=== PATIENT | female | born 1960 | race Caucasian/White ===

== ENCOUNTER 2018-07-10 16:41 | Inpatient (IN) | payer OTHER ==
[2018-07-10] MEDS ORDERED: METOCLOPRAMIDE HCL INJECTION 10 MG/2 ML VIAL IVPB ONE (19:43)
[2018-07-10] MEDS ORDERED: SODIUM CHLORIDE 1,000 ML IV STA ×2 (19:43→23:00)
[2018-07-10] MEDS ORDERED: morphine SULFATE 4 MG/ML VIAL IVPUSH ONE (19:43)
--- NOTE | 2018-07-10 20:01 | PDOC ---
History of Present Illness - General Chief Complaint: Nausea/Vomiting Stated Complaint: VOMITING Time Seen by Provider: 07/10/18 17:18 History Source: Patient - History of Present Illness Timing/Duration: reports: other Quality: reports: severe Past History - Past Medical History Allergies/Adverse Reactions: Allergies Allergy/AdvReac Type Severity Reaction Status Date / Time No Known Allergies Allergy Verified 07/10/18 19:56 Home Medications: Ambulatory Orders Bupropion HCl [Wellbutrin Xl] 300 mg PO DAILY 07/10/18 Clonazepam [Klonopin] 1 mg PO HS 07/10/18 Dexamethasone [Decadron -] 4 mg PO Q12H 07/10/18 Docusate Sodium [Colace] 200 mg PO HS 07/10/18 Methylphenidate HCl [Methylphenidate HCl ER] 20 mg PO BID 07/10/18 Olanzapine [Zyprexa -] 5 mg PO HS 07/10/18 Ondansetron [Zofran -] 4 mg PO Q4H PRN 07/10/18 Oxycodone HCl/Acetaminophen [Percocet 5-325 mg Tablet] 1 tab PO Q6H PRN Pyridoxine HCl [Vitamin B-6] 100 mg PO BID 07/10/18 Sennosides [Senna] 2 tab PO HS 07/10/18 Sertraline HCl [Zoloft -] 50 mg PO DAILY 07/10/18 Cancer: Yes (breast mets to brain) COPD: No Psychiatric Problems: Yes - Suicide/Smoking/Psychosocial Hx Smoking History: Former smoker Have you smoked in the past 12 months: No If you are a former smoker, when did you quit?: 25 y Information on smoking cessation initiated: No Review of Systems - Review of Systems Constitutional: Yes: Weakness. No: Chills, Fever Respiratory: No: Cough, Shortness of Breath Cardiac (ROS): No: Chest Pain, Palpitations, Syncope ABD/GI: Yes: Nausea, Vomiting. No: Diarrhea : No: Dysuria Musculoskeletal: No: Back Pain, Neck Pain Neurological: No: Headache, Dizziness *Physical Exam - Vital Signs Last Vital Signs Temp Pulse Resp BP Pulse Ox 98.4 F 84 18 115/90 95 07/10/18 16:54 07/10/18 16:54 07/10/18 16:54 07/10/18 16:54 07/10/18 16:54 - Physical Exam Comments: 07/10/18 20:27 chronically ill appearing General Appearance: Yes: Appropriately Dressed HEENT: positive: Normal Voice Neck: positive: Supple Respiratory/Chest: positive: Lungs Clear, Normal Breath Sounds. negative: Respiratory Distress Cardiovascular: positive: Regular Rate, S1, S2 Gastrointestinal/Abdominal: positive: Normal Bowel Sounds, Soft. negative: Tender, Distended, Guarding, Rebound Musculoskeletal: negative: CVA Tenderness Integumentary: positive: Dry, Warm Neurologic: positive: Fully Oriented, Alert, Normal Mood/Affect ED Treatment Course - LABORATORY CBC & Chemistry Diagram: 07/10/18 20:20 07/10/18 20:20 Medical Decision Making - Medical Decision Making 07/10/18 19:53 57-year-old female, history of breast ca w/ bone/brain mets per pt, on targeted therapy Q2 weeks, follows up at [facility], here with intractable nausea and vomiting for over a week with vague abdominal pain that started at some point after vomiting began. Denies any hematemesis, diarrhea, fever, chills, acute HYATT , visual changes, CP, SOB or palpitations. Now c/o gen weakness. States she got transferred to [facility] a week ago from [place] where she was undergoing a "clinical trial". Patient states symptoms began before being transferred to shelter and have been receiving zofran in shelter with no relief per patient See exam Intractable n/v H/o breast ca w/ bone/brain mets, on targeted therapy at [facility] R/o metabolic vs neuro vs infectious source, unlikely SBO or cardiac Ill [place] but stable w/ benign abd -antiemetic -IVF -pain control (reports gen body aches-chronic) -ekg -labs -CT head -anticipate admission 07/10/18 20:38 07/10/18 00:[address] head and CXR unremarkable UA pending. On initial reassessment, patient states she felt better, but at some point, began vomiting again. Will continue to manage symptoms and admit at this time 07/11/18 00:35 Case signed out to the admitting team, and patient admitted *DC/Admit/Observation/Transfer Diagnosis at time of Disposition: Intractable nausea and vomiting Qualifiers: Vomiting type: unspecified Qualified Code(s): R11.2 - Nausea with vomiting, unspecified - Discharge Dispostion Condition at time of disposition: Fair Decision to Admit order: Yes - Referrals Referrals: Sophy Rock MD [Primary Care Provider] - - Patient Instructions - Post Discharge Activity
[2018-07-10] MEDS ORDERED: METOCLOPRAMIDE HCL INJECTION 10 MG/2 ML VIAL ONE (20:04)
[2018-07-10] MEDS ORDERED: morphine SULFATE 4 MG/ML VIAL ONE (20:05)
[2018-07-10 20:42] LABS: BASO % 0.3 % (0-2.0); EOS % 0.6 % (0-4.5); HEMATOCRIT 37.8 % (32.4-45.2); HEMOGLOBIN 12.8 GM/dL (10.7-15.3); LYMPH % 12.3 % (8-40); MCH 30.3 pg (25.7-33.7); MCHC 33.9 g/dl (32.0-36.0); MEAN CELL VOLUME 89.3 fl (80-96); MEAN PLT VOLUME 7.6 fl (7.5-11.1); MONO % 4.1 % (3.8-10.2); NEUT % 82.7 % (42.8-82.8); PLATELET COUNT 184 K/MM3 (134-434); RBC 4.23 M/mm3 (3.60-5.2); WHITE BLOOD COUNT 8.5 K/mm3 (4.0-10.0)
--- NOTE | 2018-07-10 21:01 | PDOC ---
*Physical Exam - Vital Signs Last Vital Signs Temp Pulse Resp BP Pulse Ox 98.4 F 84 18 115/90 95 07/10/18 16:54 07/10/18 16:54 07/10/18 16:54 07/10/18 16:54 07/10/18 16:54 ED Treatment Course - LABORATORY CBC & Chemistry Diagram: 07/11/18 06:30 07/11/18 06:30 - ADDITIONAL ORDERS Additional order review: 07/10/18 20:20 RBC 4.23 MCV 89.3 MCHC 33.9 RDW 19.0 H MPV 7.6 Neutrophils % 82.7 Lymphocytes % 12.3 Monocytes % 4.1 Eosinophils % 0.6 Basophils % 0.3 - Medications Given in the ED: ED Medications Discontinued Medications Generic Name Dose Route Start Last Admin Trade Name Freq PRN Reason Stop Dose Admin Sodium Chloride 1,000 mls @ 1,000 mls/hr 07/10/18 19:43 07/10/18 20:31 Normal Saline - IV 07/10/18 20:42 1,000 mls/hr ASDIR STA Administration Metoclopramide HCl 10 mg 07/10/18 19:43 07/10/18 20:31 Reglan Injection - IVPB 07/10/18 19:44 10 mg ONCE ONE Administration Morphine Sulfate 4 mg 07/10/18 19:43 07/10/18 20:30 Morphine Sulfate IVPUSH 07/10/18 19:44 4 mg ONCE ONE Administration Medical Decision Making - Medical Decision Making 07/10/18 21:01 agree with care from ROCK August *DC/Admit/Observation/Transfer Diagnosis at time of Disposition: Intractable nausea and vomiting - Discharge Dispostion Condition at time of disposition: Fair - Referrals - Patient Instructions - Post Discharge Activity
[2018-07-10 21:12] LABS: ALBUMIN 3.2 g/dl (3.4-5.0); ALK PHOS 115 U/L (45-117); ANION GAP 10 (8-16); BILIRUBIN,TOTAL 0.6 mg/dL (0.2-1.0); BLOOD UREA NITROGEN 12 mg/dL (7-18); CALCIUM 8.9 mg/dL (8.5-10.1); CHLORIDE 107 mmol/L (98-107); CO2 25 mmol/L (21-32); CREATININE 0.5 mg/dL (0.55-1.02); GLUCOSE,RANDOM 84 mg/dL (74-106); LIPASE 68 U/L (73-393); POTASSIUM 3.6 mmol/L (3.5-5.1); SGOT/AST 38 U/L (15-37); SGPT/ALT 57 U/L (12-78); SODIUM 142 mmol/L (136-145); TOT PROT 6.9 g/dl (6.4-8.2)
[2018-07-10] MEDS ORDERED: ONDANSETRON 4 MG/2 ML VIAL IVPUSH ONE (23:00)
[2018-07-10] MEDS ORDERED: ONDANSETRON 4 MG/2 ML VIAL ONE (23:08)
--- NOTE | 2018-07-11 00:33 | PN ---
Teaching Attending Note Name of Resident: Aruna Knapp ATTENDING PHYSICIAN STATEMENT I saw and evaluated the patient. I reviewed the resident's note and discussed the case with the resident. I agree with the resident's findings and plan as documented. SUBJECTIVE: Patient is 57 year old woman with history of breast ca w/ bone/brain mets, bilateral mastectomy on targeted therapy Q2 weeks, follows up at [facility] , here with intractable nausea and vomiting for over a week with vague abdominal pain that started at some point after vomiting began. Denies any hematemesis, diarrhea, fever, chills, acute HYATT , visual changes, CP, SOB or palpitations. Now c/o gen weakness. States she got transferred to [facility] a week ago from [place] where she was undergoing a "clinical trial". Patient states symptoms began before being transferred to detention and have been receiving zofran in detention with no relief per patient OBJECTIVE: Alert and in mild discomfort Vital Signs Period Temp Pulse Resp BP Sys/Lacey Pulse Ox Last 24 Hr 98.4 F-98.4 F 84-87 18-18 115-128/88-90 95-96 HEENT: No Jaundice, eye redness or discharge, PERRLA, EOMI. Normocephalic, atraumatic. External ears are normal and hearing is grossly intact. No nasal discharge. Neck: Supple, nontender. No palpable adenopathy or thyromegaly. No JVD Chest: Good effort. Bilateral mastectomy; Clear to auscultation and percussion. Heart: Regular. No S3, rub or murmur Abdomen: Not distended, soft, nontender and no HSM. No rebound or guarding. Normoactive bowel sounds. Ext: Peripheral pulses intact. No leg edema. Skin: Warm and dry. No petechiae, rash or ecchymosis. Neuro: Alert. Oriented x3. CN 2-12 grossly intact. Sensation grossly intact in all four extremities and DTR are symmetric. Home Medications Medication Instructions Recorded Bupropion HCl [Wellbutrin Xl] 300 mg PO DAILY 07/10/18 Clonazepam [Klonopin] 1 mg PO HS 07/10/18 Dexamethasone [Decadron -] 4 mg PO Q12H 07/10/18 Docusate Sodium [Colace] 200 mg PO HS 07/10/18 Methylphenidate HCl 20 mg PO BID 07/10/18 [Methylphenidate HCl ER] Olanzapine [Zyprexa -] 5 mg PO HS 07/10/18 Ondansetron [Zofran -] 4 mg PO Q4H PRN 07/10/18 Oxycodone HCl/Acetaminophen 1 tab PO Q6H PRN 07/10/18 [Percocet 5-325 mg Tablet] Pyridoxine HCl [Vitamin B-6] 100 mg PO BID 07/10/18 Sennosides [Senna] 2 tab PO HS 07/10/18 Sertraline HCl [Zoloft -] 50 mg PO DAILY 07/10/18 Abnormal Lab Results 07/10/18 07/10/18 20:20 20:20 RDW 19.0 H Creatinine 0.5 L AST 38 H Albumin 3.2 L Lipase 68 L ASSESSMENT AND PLAN: 1. Intractable Vomiting - Likely a side effect of the chemotherapy as well as cancer-related vomiting. Head CT does not show any mass lesions. No QT prolongation on EKG. Will give IV NS, zofran, reglan and protonix. NPO for now. Get CT abd/pelvis and consult GI and oncology. Provide generous emotional support. 2. DVT prophylaxis - Lovenox 40 mg SQ q 24 hours. 3. Advance directives - Full code
[2018-07-11 00:51] LABS: URINE APPEARANCE TURBID; URINE BILIRUBIN NEGATIVE (<2.0 mg/dL); URINE COLOR AMBER; URINE GLUCOSE (UA) NEGATIVE (NEGATIVE); URINE KETONE NEGATIVE (NEGATIVE)
[2018-07-11] MEDS ORDERED: ONDANSETRON 4 MG TABLET PO PRN (00:51)
[2018-07-11 00:52] LABS: URINE LEUK ESTERASE NEGATIVE (NEGATIVE); URINE NITRITE NEGATIVE (NEGATIVE); URINE PROTEIN NEGATIVE (NEGATIVE); URINE UROBILINOGEN 4.0 E.U/dl mg/dL (0.2-1.0)
[2018-07-11] MEDS ORDERED: SODIUM CHLORIDE 1,000 ML IV SCH (01:45)
--- NOTE | 2018-07-11 02:04 | HP ---
CHIEF COMPLAINT:nausea and vomiting PCP: HISTORY OF PRESENT ILLNESS: Patient is a 57 year old female with past medical history of breast cancer with metastasis to bone and cerebellum, presented with nausea and vomiting for 1 week. Patient has had 5-6 episodes per day of nonbloody, nonbilious vomiting since 1 week ago. She [facility]an [facility] which provided minimal relief. She was brought to the ED due to persistence of vomiting with accompanying vague abdominal pain and weakness. This was the first time patient experienced intractable vomiting. Patient is seen at [facility] for infusion targeted therapy every 3 weeks for the past 3 years, and Herceptin clinical trial at [facility] for 1 year. Patient denies hematemesis, diarrhea, fever, chills, headache, visual changes, chest pain, SOB, palpitations. ER course was notable for: (1)AST 38, ALT 57, Urinalysis showed urobilinogen 4.0 (2)Head CT - no discrete mass lesion Recent Travel:denies any recent travel PAST MEDICAL HISTORY: Breast cancer stage IV PAST SURGICAL HISTORY: Double mastectomy Social History: Smoking:previous smoker, 2 ppd x 8 years, quit 25 years ago Alcohol:non EtOH drinker Drugs: denies illicit drug use Family History: Allergies No Known Allergies Allergy (Verified 07/10/18 19:56) HOME MEDICATIONS: Home Medications Medication Instructions Recorded Bupropion HCl [Wellbutrin Xl] 300 mg PO DAILY 07/10/18 Clonazepam [Klonopin] 1 mg PO HS 07/10/18 Dexamethasone [Decadron -] 4 mg PO Q12H 07/10/18 Docusate Sodium [Colace] 200 mg PO HS 07/10/18 Methylphenidate HCl 20 mg PO BID 07/10/18 [Methylphenidate HCl ER] Olanzapine [Zyprexa -] 5 mg PO HS 07/10/18 Ondansetron [Zofran -] 4 mg PO Q4H PRN 07/10/18 Oxycodone HCl/Acetaminophen 1 tab PO Q6H PRN 07/10/18 [Percocet 5-325 mg Tablet] Pyridoxine HCl [Vitamin B-6] 100 mg PO BID 07/10/18 Sennosides [Senna] 2 tab PO HS 07/10/18 Sertraline HCl [Zoloft -] 50 mg PO DAILY 07/10/18 REVIEW OF SYSTEMS CONSTITUTIONAL: Absent: fever, chills, diaphoresis, generalized weakness, malaise, loss of appetite, weight change HEENT: Absent: rhinorrhea, nasal congestion, throat pain, throat swelling, difficulty swallowing, mouth swelling, ear pain, eye pain, visual changes CARDIOVASCULAR: Absent: chest pain, syncope, palpitations, irregular heart rate, lightheadedness , peripheral edema RESPIRATORY: Absent: cough, shortness of breath, dyspnea with exertion, orthopnea, wheezing, stridor, hemoptysis GASTROINTESTINAL:+nausea, +vomiting Absent: abdominal pain, abdominal distension, diarrhea, constipation, melena, hematochezia GENITOURINARY: Absent: dysuria, frequency, urgency, hesitancy, hematuria, flank pain, genital pain MUSCULOSKELETAL: Absent: myalgia, arthralgia, joint swelling, back pain, neck pain SKIN: Absent: rash, itching, pallor HEMATOLOGIC/IMMUNOLOGIC: Absent: easy bleeding, easy bruising, lymphadenopathy, frequent infections ENDOCRINE: Absent: unexplained weight gain, unexplained weight loss, heat intolerance, cold intolerance NEUROLOGIC: Absent: headache, focal weakness or paresthesias, dizziness, unsteady gait, seizure, mental status changes, bladder or bowel incontinence PSYCHIATRIC: Absent: anxiety, depression, suicidal or homicidal ideation, hallucinations. PHYSICAL EXAMINATION Vital Signs - 24 hr 07/10/18 07/10/18 16:54 23:39 Temperature 98.4 F 98.4 F Pulse Rate 84 Pulse Rate [ 87 Apical] Respiratory 18 18 Rate Blood Pressure 115/90 Blood Pressure 128/88 [Left Arm] O2 Sat by Pulse 95 96 Oximetry (%) GENERAL: Awake, alert, and fully oriented, in no acute distress. HEAD: Normal with no signs of trauma. EYES: PERRLA, EOMI, sclera anicteric, conjunctiva clear. EARS, NOSE, THROAT: Ears normal, nares patent, oropharynx clear without exudates. Moist mucous membranes. NECK: Normal range of motion, supple LUNGS: Breath sounds equal, clear to auscultation bilaterally. HEART: Regular rate and rhythm, normal S1 and S2 without murmur, rub or gallop. ABDOMEN: nontender, mildly distended, normoactive bowel sounds. MUSCULOSKELETAL: Normal range of motion at all joints. No bony deformities or tenderness. No CVA tenderness. UPPER EXTREMITIES: 2+ pulses, warm, well-perfused. No cyanosis. No clubbing. No peripheral edema. LOWER EXTREMITIES: 2+ pulses, warm, well-perfused. No calf tenderness. No peripheral edema. NEUROLOGICAL: Cranial nerves II-XII intact. Normal speech. Normal gait. PSYCHIATRIC: Cooperative. Good eye contact. Appropriate mood and affect. SKIN: Warm, dry, normal turgor, no rashes Laboratory Results - last 24 hr 07/10/18 07/10/18 07/10/18 20:20 20:20 23:23 WBC 8.5 RBC 4.23 Hgb 12.8 Hct 37.8 MCV 89.3 MCH 30.3 MCHC 33.9 RDW 19.0 H Plt Count 184 MPV 7.6 Absolute Neuts (auto) 7.1 Neutrophils % 82.7 Lymphocytes % 12.3 Monocytes % 4.1 Eosinophils % 0.6 Basophils % 0.3 Nucleated RBC % 0 Sodium 142 Potassium 3.6 Chloride 107 Carbon Dioxide 25 Anion Gap 10 BUN 12 Creatinine 0.5 L Creat Clearance w eGFR > 60 Random Glucose 84 Calcium 8.9 Total Bilirubin 0.6 AST 38 H ALT 57 Alkaline Phosphatase 115 Total Protein 6.9 Albumin 3.2 L Lipase 68 L Urine Color Sonam Urine Appearance Turbid Urine pH 7.0 Ur Specific Staley 1.016 Urine Protein Negative Urine Glucose (UA) Negative Urine Ketones Negative Urine Blood Negative Urine Nitrite Negative Urine Bilirubin Negative Urine Urobilinogen 4.0 e.u/dl H Ur Leukocyte Esterase Negative CBC, BMP 07/10/18 20:20 07/10/18 20:20 ASSESSMENT/PLAN: Patient is a 57 year old female with past medical history of breast cancer with metastasis to bone and cerebellum, presented with nausea and vomiting for 1 week. #Intractable vomiting: patient had 1 week hx of nonbloody and nonbilious vomiting. -AST 38, ALT 57, Urinalysis showed urobilinogen 4.0 -CT of abdomen and pelvis ordered. -NPO for now. -IV fluids started. -Metoclopromide 10 mg IV q6h PRN -Ondansetron 4 mg IV q6h PRN -Dr. Bronson consult appreciated. #Breast cancer stage IV -Patient on Infusion Targeted therapy and Herceptin -Oncology consult appreciated. #FEN -IV NS (0.9%) at 42ml/hr -electrolytes wnl, routine bmp monitoring -NPO for now #Prophylaxis -Heparin 5000 units sq tid #Disposition -admit to obs -full code Visit type - Emergency Visit Emergency Visit: Yes ED Registration Date: 07/11/18 Care time: The patient presented to the Emergency Department on the above date and was hospitalized for further evaluation of their emergent condition. - New Patient This patient is new to me today: Yes Date on this admission: 07/11/18 - Critical Care Critical Care patient: No Hospitalist Screening - Colonoscopy Questionnaire Colonoscopy Questionnaire: Colonoscopy Questionnaire - Patient: 50 - 75 years old and never had a screening colonoscopy: Unknown History of colon or rectal polyps, or CA: Unknown History of IBD, Crohn's disease or UC: Unknown History of abdominal radiation therapy as a child: Unknown - Relative: 1 with colon or rectal CA, or polyps at age 60 or younger: Unknown Colon or rectal CA diagnosed at age 45 or younger: Unknown Multiple relatives with colon or rectal CA: Unknown - Outcome: Screening Result: Negative Screen
[2018-07-11] MEDS: METOCLOPRAMIDE HCL INJECTION 10 MG/2 ML VIAL IVPUSH PRN ×2 (02:50→11:53)
[2018-07-11] MEDS: oxyCODONE HCL 5 MG TABLET PO PRN ×3 (03:00→21:07)
[2018-07-11] MEDS: HEPARIN NA (PORCINE) 5,000 UNITS/ML 1ML VIAL SQ SCH ×3 (06:27→21:03)
[2018-07-11] MEDS: ONDANSETRON 4 MG/2 ML VIAL IVPUSH PRN (07:11)
[2018-07-11 08:10] LABS: HEMATOCRIT 33.5 % (32.4-45.2); HEMOGLOBIN 11.4 GM/dL (10.7-15.3); MCH 30.6 pg (25.7-33.7); MEAN PLT VOLUME 7.8 fl (7.5-11.1); PLATELET COUNT 170 K/MM3 (134-434); RBC 3.73 M/mm3 (3.60-5.2); RDW 18.9 % (11.6-15.6)
[2018-07-11 08:41] VITALS: BMI 23.5
[2018-07-11 08:51] LABS: ANION GAP 10 (8-16); BLOOD UREA NITROGEN 9 mg/dL (7-18); CALCIUM 7.6 mg/dL (8.5-10.1); CHLORIDE 112 mmol/L (98-107); CO2 22 mmol/L (21-32); GLUCOSE,RANDOM 65 mg/dL (74-106); MAGNESIUM 1.7 mg/dL (1.8-2.4); POTASSIUM 3.1 mmol/L (3.5-5.1); SODIUM 144 mmol/L (136-145)
[2018-07-11 08:52] LABS: CREATININE 0.4 mg/dL (0.55-1.02); PHOSPHOROUS 2.8 mg/dL (2.5-4.9)
--- NOTE | 2018-07-11 08:56 | PN ---
Progress Note, Physician Chief Complaint: EVENTS AND NOTES REVIEWED C/O NAUSEA/VOMITING NO FEVER OR CHILLS - Current Medication List Current Medications: Active Medications Acetaminophen (Tylenol -) 325 mg PO Q6H PRN PRN Reason: TESS Bupropion HCl (Wellbutrin Xl -) 300 mg PO DAILY [facility] Clonazepam (Klonopin -) 1 mg PO HS [facility] Dexamethasone (Decadron -) 4 mg PO BID [facility] Docusate Sodium (Colace -) 200 mg PO HS [facility] Heparin Sodium (Porcine) (Heparin -) 5,000 unit SQ TID [facility] Last Admin: 07/11/18 06:27 Dose: 5,000 unit Sodium Chloride (Normal Saline -) 1,000 mls @ 42 mls/hr IV ASDIR [facility] Last Admin: 07/11/18 02:49 Dose: 42 mls/hr Metoclopramide HCl (Reglan Injection -) 10 mg IVPUSH Q6H PRN PRN Reason: NAUSEA AND/OR VOMITING Last Admin: 07/11/18 02:50 Dose: 10 mg Olanzapine (Zyprexa -) 5 mg PO HS [facility] Ondansetron HCl (Zofran Injection) 4 mg IVPUSH Q6H PRN PRN Reason: NAUSEA AND/OR VOMITING Last Admin: 07/11/18 07:11 Dose: 4 mg Oxycodone HCl (Roxicodone -) 5 mg PO Q6H PRN PRN Reason: PAIN LEVEL 6-10 Last Admin: 07/11/18 03:00 Dose: 5 mg Pyridoxine HCl (Vitamin B6 -) 100 mg PO BID [facility] Senna (Senna -) 2 tab PO HS [facility] Sertraline HCl (Zoloft -) 50 mg PO DAILY [facility] - Objective Vital Signs: Vital Signs Temperature 98.4 F 07/11/18 08:41 Pulse Rate 80 07/11/18 08:41 Respiratory Rate 18 07/11/18 08:41 Blood Pressure 136/80 07/11/18 08:41 O2 Sat by Pulse Oximetry (%) 96 07/11/18 03:32 Constitutional: Yes: Mild Distress Eyes: Yes: WNL HENT: Yes: WNL Neck: Yes: WNL Cardiovascular: Yes: WNL Respiratory: Yes: WNL Gastrointestinal: Yes: WNL Genitourinary: Yes: WNL Musculoskeletal: Yes: WNL Edema: Yes Edema: LLE: Trace, RLE: Trace Peripheral Pulses WNL: Yes Integumentary: Yes: WNL Wound/Incision: Yes: Clean/Dry Neurological: Yes: WNL ...Motor Strength: WNL Psychiatric: Yes: Other Labs: CBC, BMP 07/11/18 06:30 Problem List - Problems (1) Intractable nausea and vomiting Code(s): R11.2 - NAUSEA WITH VOMITING, UNSPECIFIED Qualifiers: Vomiting type: unspecified Qualified Code(s): R11.2 - Nausea with vomiting , unspecified (2) Breast cancer Code(s): C50.919 - MALIGNANT NEOPLASM OF UNSP SITE OF UNSPECIFIED FEMALE BREAST (3) Metastatic breast cancer Code(s): C50.919 - MALIGNANT NEOPLASM OF UNSP SITE OF UNSPECIFIED FEMALE BREAST (4) Carcinoma of breast metastatic to bone Code(s): C50.919 - MALIGNANT NEOPLASM OF UNSP SITE OF UNSPECIFIED FEMALE BREAST ; C79.51 - SECONDARY MALIGNANT NEOPLASM OF BONE (5) 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 Code(s): C50.919 - MALIGNANT NEOPLASM OF UNSP SITE OF UNSPECIFIED FEMALE BREAST ; C79.31 - SECONDARY MALIGNANT NEOPLASM OF BRAIN Assessment/Plan PAIN CONTROL IVF GI EVAL ANTIEMETICS OOB TO CHAIR ONCOLOGY F/U
[2018-07-11] MEDS ORDERED: PT OWN MED DRAWER 7, Y5N ONE (09:39)
[2018-07-11] MEDS: morphine SULFATE 4 MG/ML VIAL IVPUSH PRN ×2 (09:41→15:42)
[2018-07-11] MEDS ORDERED: POTASSIUM CHLORIDE TABS 10 MEQ TABLET.ER (FP) PO ONE (09:45)
[2018-07-11] MEDS ORDERED: KCL 10 MEQ IVPB 10 MEQ/100 ML INFUS.BAG IVPB SCH (09:45)
[2018-07-11] MEDS: DEXAMETHASONE 4 MG TABLET (FP) PO SCH ×2 (09:51→21:02)
[2018-07-11] MEDS: SERTRALINE HCL 50 MG TABLET (FP) PO SCH (09:52)
[2018-07-11] MEDS: PYRIDOXINE HCL (B-6) 50 MG TABLET (FP) PO SCH ×2 (09:53→21:02)
[2018-07-11] MEDS ORDERED: MAGNESIUM 2GM/50ML STERILE WATER IVPB IVPB ONE (10:00)
--- NOTE | 2018-07-11 13:56 | CONSULT ---
Consultation: REQUESTING PROVIDER: CONSULT REQUEST: We have been asked to medically evaluate this patient for ( Hematology- oncology). 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 She came to the hospital with chief complaint nausea and vomiting for 4-5 days week. Patient has had 5-6 episodes per day of nonbloody, green in color. She was given Zofran at the senior living which provided minimal relief. She denies sick contact, headache, dizziness, diarrhoea, pain abdomen, blood in stool, fever, chills and pain abdomen. Since she in hospital she has no episode of vomiting. She also reports that from last couple of days she had sneezing, runny nose and change in her voice. She also reports double vision from 3 week Patient was in [place] 10 days ago for clinical trail and was discharge to [facility] rehab. Patient is seen at [facility] for infusion targeted therapy every 3 weeks for the past 3 years, and Herceptin clinical trial at [facility] for 1 year. She scheduled for infusion [facility]. 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 CARDIOVASCULAR: Absent: chest pain, syncope, palpitations, irregular heart rate, l RESPIRATORY: Absent: cough, shortness of breath, dyspnea with exertion, orthopnea, wheezing, stridor, hemoptysis GASTROINTESTINAL: Absent: abdominal pain, abdominal distension, diarrhea, constipation, melena, hematochezia GENITOURINARY: Absent: dysuria, frequency, urgency, hesitancy, MUSCULOSKELETAL: Absent: myalgia, arthralgia, joint swelling, SKIN: Absent: rash, itching, pallor HEMATOLOGIC/IMMUNOLOGIC: Absent: easy bleeding, easy bruising, l ENDOCRINE: Absent: unexplained weight gain, unexplained weight loss, NEUROLOGIC: Absent: headache, focal weakness or paresthesias, dizziness, unsteady gait, seizure, PSYCHIATRIC: Absent: anxiety, depression, PHYSICAL EXAMINATION Vital Signs - 24 hr 07/10/18 07/10/18 07/11/18 16:54 23:39 02:40 Temperature 98.4 F 98.4 F 97.8 F Pulse Rate 84 74 Pulse Rate [ 87 Apical] Respiratory 18 18 18 Rate Blood Pressure 115/90 157/84 Blood Pressure 128/88 [Left Arm] O2 Sat by Pulse 95 96 Oximetry (%) GENERAL: Awake, alert, and fully oriented, in no acute distress. HEAD: Normal with no signs of trauma. EYES: Pupils equal, round and reactive to light, sclera anicteric, conjunctiva clear EARS, NOSE, THROAT: Ears normal, nares patent, oropharynx clear without exudates. Moist mucous membranes., cheilosis NECK: Normal range of motion, supple without lymphadenopathy, LUNGS: Breath sounds equal, clear to auscultation bilaterally. No wheezes, and no crackles. No accessory muscle use. Breast: scar on both breats, no lump palpable, no axillary lympnode HEART: Regular rate and rhythm, normal S1 and S2 without murmur, ABDOMEN: Soft, nontender, not distended, normoactive bowel sounds, no guarding, no rebound, no masses. suprapubic transverse escar and periumblical scar present MUSCULOSKELETAL: Normal range of motion at all joints. UPPER EXTREMITIES: 2+ pulses, warm, well-perfused. No cyanosis. LOWER EXTREMITIES: warm, well-perfused. No calf tenderness. PSYCHIATRIC: Cooperative. Good eye contact. SKIN: Warm, dry, Laboratory Results - last 24 hr 07/10/18 07/10/18 07/10/18 20:20 20:20 23:23 WBC 8.5 RBC 4.23 Hgb 12.8 Hct 37.8 MCV 89.3 MCH 30.3 MCHC 33.9 RDW 19.0 H Plt Count 184 MPV 7.6 Absolute Neuts (auto) 7.1 Neutrophils % 82.7 Lymphocytes % 12.3 Monocytes % 4.1 Eosinophils % 0.6 Basophils % 0.3 Nucleated RBC % 0 Sodium 142 Potassium 3.6 Chloride 107 Carbon Dioxide 25 Anion Gap 10 BUN 12 Creatinine 0.5 L Creat Clearance w eGFR > 60 Random Glucose 84 Calcium 8.9 Phosphorus Magnesium Total Bilirubin 0.6 AST 38 H ALT 57 Alkaline Phosphatase 115 Total Protein 6.9 Albumin 3.2 L Lipase 68 L Urine Color Sonam Urine Appearance Turbid Urine pH 7.0 Ur Specific [place] 1.016 Urine Protein Negative Urine Glucose (UA) Negative Urine Ketones Negative Urine Blood Negative Urine Nitrite Negative Urine Bilirubin Negative Urine Urobilinogen 4.0 e.u/dl H Ur Leukocyte Esterase Negative Generic Name Dose Route Start Last Admin Trade Name Freq PRN Reason Stop Dose Admin Acetaminophen 325 mg 07/11/18 01:24 Tylenol - PO Q6H PRN TESS Bupropion HCl 300 mg 07/11/18 10:00 07/11/18 09:52 Wellbutrin Xl - PO 300 mg DAILY YOKASTA Administration Clonazepam 1 mg 07/11/18 22:00 Klonopin - PO HS YOKASTA Dexamethasone 4 mg 07/11/18 10:00 07/11/18 09:51 Decadron - PO 4 mg BID YOKASTA Administration Docusate Sodium 200 mg 07/11/18 22:00 Colace - PO HS [facility] Heparin Sodium (Porcine) 5,000 unit 07/11/18 06:00 07/11/18 06:27 Heparin - SQ 5,000 unit TID YOKASTA Administration Sodium Chloride 1,000 mls @ 80 mls/hr 07/11/18 09:11 Normal Saline - IV ASDIR YOKASTA Metoclopramide HCl 10 mg 07/11/18 01:51 07/11/18 11:53 Reglan Injection - IVPUSH 10 mg Q6H PRN Administration NAUSEA AND/OR VOMITING Morphine Sulfate 4 mg 07/11/18 09:00 07/11/18 09:41 Morphine Sulfate IVPUSH 4 mg Q6H PRN Administration PAIN LEVEL 7 - 10 Olanzapine 5 mg 07/11/18 22:00 Zyprexa - PO HS YOKASTA Ondansetron HCl 4 mg 07/11/18 01:52 07/11/18 07:11 Zofran Injection IVPUSH 4 mg Q6H PRN Administration NAUSEA AND/OR VOMITING Oxycodone HCl 5 mg 07/11/18 01:24 07/11/18 12:36 Roxicodone - PO 5 mg Q6H PRN Administration PAIN LEVEL 6-10 Pyridoxine HCl 100 mg 07/11/18 10:00 07/11/18 09:53 Vitamin B6 - PO 100 mg BID YOKASTA Administration Senna 2 tab 07/11/18 22:00 Senna - PO HS YOKASTA Sertraline HCl 50 mg 07/11/18 10:00 07/11/18 09:52 Zoloft - PO 50 mg DAILY YOKASTA Administration ASSESSMENT/PLAN: 57 y/o female with PMH of metastatic breast ca details not available came to hospital because of vomiting. CT head negative for mets. Patient follow oncologist in [facility] and is on clinical trial in [place]. She scheduled for infusion therapy for tomorrow with her oncologist. Once patient nausea improves and she tolerates orally she can be discharged and can follow up with her oncologist. Correct serum potassium and magnesium Dispo: We will continue to follow the patient. Thank you for this consultative opportunity. Visit type - Emergency Visit Emergency Visit: Yes ED Registration Date: 07/11/18 Care time: The patient presented to the Emergency Department on the above date and was hospitalized for further evaluation of their emergent condition. - New Patient This patient is new to me today: Yes Date on this admission: 07/12/18 - Critical Care Critical Care patient: No
--- NOTE | 2018-07-11 14:08 | EKG ---
Test Reason : Blood Pressure : / mmHG Vent. Rate : 073 BPM Atrial Rate : 073 BPM P-R Int : 198 ms QRS Dur : 096 ms QT Int : 376 ms P-R-T Axes : 046 007 093 degrees QTc Int : 414 ms NORMAL SINUS RHYTHM NONSPECIFIC T WAVE ABNORMALITY ABNORMAL ECG NO PREVIOUS ECGS AVAILABLE Confirmed by NERISSA ROMERO, SIMBA ([id number]) on 07/11/2018 2:07:33 PM Referred By: Confirmed By:SIMBA MULTANI MD
[2018-07-11] MEDS: KCL 10 MEQ IVPB 10 MEQ/100 ML INFUS.BAG IVPB SCH ×2 (14:42→17:30)
[2018-07-11] MEDS: SODIUM CHLORIDE 1,000 ML IV SCH (14:59)
--- NOTE | 2018-07-11 16:38 | CON.GI ---
Consult Consult Specialty:: GI Reason for Consultation:: Nause, vomiting - History of Present Illness History of Present Illness: Chart reviewed. Event and consults noted. The pt with the below outlined medical history and onchoing chemotherapy reports acute onset of nausea with vomiting while at rehabilitation facility. No fever, chills, jaundice, changes in bowel habits, hematemesis, melena, abdominal pain, dysphagia, GERD, or odynophagia. Hungry and wants to eat. Noted to have electrolyte imbalance, otherwise essentially normal CBC, liver chemistry , lipase. Minimal pericardial thickening versus a trace of pericardial effusion. Over distended gallbladder without evidence of gallstones or CT evidence of acute cholecystitis. Mesenteric stranding around the celiac artery as well as mild mesenteric stranding around the superior mesenteric artery and vein, and the mid abdomen which are nonspecific suggestive of panniculitis. No gross enlarged mesenteric lymph nodes are identified on this noncontrast examination. Lack of oral contrast is limiting evaluation of the small and large bowel without gross evidence of small bowel obstruction or wall thickening. There is mild stranding of the perirectal fat is nonspecific. - History Source Limitations to Obtaining History: No Limitations - Past Medical History ...: No - Alcohol/Substance Use Hx Alcohol Use: No - Smoking History Smoking history: Former smoker Have you smoked in the past 12 months: No If you are a former smoker, when did you quit?: 25 y Home Medications - Allergies Allergies/Adverse Reactions: Allergies Allergy/AdvReac Type Severity Reaction Status Date / Time No Known Allergies Allergy Verified 07/10/18 19:56 - Home Medications Home Medications: Ambulatory Orders Bupropion HCl [Wellbutrin Xl] 300 mg PO DAILY 07/10/18 Clonazepam [Klonopin] 1 mg PO HS 07/10/18 Dexamethasone [Decadron -] 4 mg PO Q12H 07/10/18 Docusate Sodium [Colace] 200 mg PO HS 07/10/18 Methylphenidate HCl [Methylphenidate HCl ER] 20 mg PO BID 07/10/18 Olanzapine [Zyprexa -] 5 mg PO HS 07/10/18 Ondansetron [Zofran -] 4 mg PO Q4H PRN 07/10/18 Oxycodone HCl/Acetaminophen [Percocet 5-325 mg Tablet] 1 tab PO Q6H PRN Pyridoxine HCl [Vitamin B-6] 100 mg PO BID 07/10/18 Sennosides [Senna] 2 tab PO HS 07/10/18 Sertraline HCl [Zoloft -] 50 mg PO DAILY 07/10/18 Family Disease History - Family Disease History Family History: Unremarkable (non-contrib) Review of Systems Findings/Remarks: as per HPI, ED, H&P Physical Exam-GI Vital Signs: Vital Signs Temperature 98.1 F 07/11/18 14:20 Pulse Rate 78 07/11/18 14:20 Respiratory Rate 16 07/11/18 14:20 Blood Pressure 127/84 07/11/18 14:20 O2 Sat by Pulse Oximetry (%) 95 07/11/18 09:31 Constitutional: Yes: No Distress, Calm Eyes: Yes: Conjunctiva Clear HENT: Yes: Atraumatic Neck: Yes: Supple Cardiovascular: Yes: Regular Rate and Rhythm Respiratory: Yes: Regular Gastrointestinal Inspection: No: Ascites, Distention ...Auscultate: Yes: Normoactive Bowel Sounds ...Palpate: Yes: Soft. No: Firm/Rigid, Mass, Splenomegaly, Tenderness, Tenderness, Epigastium, Tenderness, Rebound Neurological: Yes: Alert, Oriented Labs: CBC, BMP 07/11/18 06:30 07/11/18 06:30 Laboratory Last Values WBC 7.0 K/mm3 (4.0-10.0) 07/11/18 06:30 RBC 3.73 M/mm3 (3.60-5.2) 07/11/18 06:30 Hgb 11.4 GM/dL (10.7-15.3) 07/11/18 06:30 Hct 33.5 % (32.4-45.2) 07/11/18 06:30 MCV 90.0 fl (80-96) 07/11/18 06:30 MCH 30.6 pg (25.7-33.7) 07/11/18 06:30 MCHC 34.0 g/dl (32.0-36.0) 07/11/18 06:30 RDW 18.9 % (11.6-15.6) H 07/11/18 06:30 Plt Count 170 K/MM3 (134-434) 07/11/18 06:30 MPV 7.8 fl (7.5-11.1) 07/11/18 06:30 Absolute Neuts (auto) 7.1 # 07/10/18 20:20 Neutrophils % 82.7 % (42.8-82.8) 07/10/18 20:20 Lymphocytes % 12.3 % (8-40) 07/10/18 20:20 Monocytes % 4.1 % (3.8-10.2) 07/10/18 20:20 Eosinophils % 0.6 % (0-4.5) 07/10/18 20:20 Basophils % 0.3 % (0-2.0) 07/10/18 20:20 Nucleated RBC % 0 % (0-0) 07/10/18 20:20 Sodium 144 mmol/L (136-145) 07/11/18 06:30 Potassium 3.1 mmol/L (3.5-5.1) L 07/11/18 06:30 Chloride 112 mmol/L (98-107) H 07/11/18 06:30 Carbon Dioxide 22 mmol/L (21-32) 07/11/18 06:30 Anion Gap 10 (8-16) 07/11/18 06:30 BUN 9 mg/dL (7-18) 07/11/18 06:30 Creatinine 0.4 mg/dL (0.55-1.02) L 07/11/18 06:30 Creat Clearance w eGFR > 60 (>60) 07/11/18 06:30 Random Glucose 65 mg/dL (74-106) L 07/11/18 06:30 Calcium 7.6 mg/dL (8.5-10.1) L 07/11/18 06:30 Phosphorus 2.8 mg/dL (2.5-4.9) 07/11/18 06:30 Magnesium 1.7 mg/dL (1.8-2.4) L 07/11/18 06:30 Total Bilirubin 0.6 mg/dL (0.2-1.0) 07/10/18 20:20 AST 38 U/L (15-37) H 07/10/18 20:20 ALT 57 U/L (12-78) 07/10/18 20:20 Alkaline Phosphatase 115 U/L (45-117) 07/10/18 20:20 Total Protein 6.9 g/dl (6.4-8.2) 07/10/18 20:20 Albumin 3.2 g/dl (3.4-5.0) L 07/10/18 20:20 Lipase 68 U/L (73-393) L 07/10/18 20:20 Urine Color Sonam 07/10/18 23:23 Urine Appearance Turbid 07/10/18 23:23 Urine pH 7.0 (5.0-8.0) 07/10/18 23:23 Ur Specific [place] 1.016 (1.001-1.035) 07/10/18 23:23 Urine Protein Negative (NEGATIVE) 07/10/18 23:23 Urine Glucose (UA) Negative (NEGATIVE) 07/10/18 23:23 Urine Ketones Negative (NEGATIVE) 07/10/18: Urine Blood Negative (NEGATIVE) 07/10/18 23:23 Urine Nitrite Negative (NEGATIVE) 07/10/18 23:23 Urine Bilirubin Negative (<2.0 mg/dL) 07/10/18: Urine Urobilinogen 4.0 e.u/dl mg/dL (0.2-1.0) H 07/10/18 23:23 Ur Leukocyte Esterase Negative (NEGATIVE) 07/10/18 23:23 Imaging - Results Cat Scan: Report Reviewed Problem List - Problems (1) Intractable nausea and vomiting Code(s): R11.2 - NAUSEA WITH VOMITING, UNSPECIFIED Qualifiers: Vomiting type: unspecified Qualified Code(s): R11.2 - Nausea with vomiting , unspecified Assessment/Plan A 57F on chemotherapy developed nausea and vomiting w/o overt GI findings. 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 Correct electrolytes. Minimize narcotics, of possible. Recommend trial of liquid diet and advance as tolerated. Agree with zofran ac meals. Follow up with cancer team as scheduled at [facility] tomorrow. discussed with the patient.
[2018-07-11] MEDS: OLANZapine 5 MG TABLET PO SCH (21:02)
[2018-07-11] MEDS: DOCUSATE SODIUM 100 MG CAPSULE (FP) PO SCH (21:02)
[2018-07-11] MEDS: SENNOSIDES 8.6MG TABLET (FP) PO SCH (21:02)
[2018-07-11] MEDS: clonazePAM 0.5 MG TABLET PO SCH (21:03)
[2018-07-11] MEDS: ACETAMINOPHEN 325 MG TABLET (FP) PO PRN (21:08)
--- NOTE | 2018-07-11 23:42 | PN ---
Teaching Attending Note Name of Resident: Jordy Olivera ATTENDING PHYSICIAN STATEMENT I saw and evaluated the patient. I reviewed the resident's note and discussed the case with the resident. I agree with the resident's findings and plan as documented. ASSESSMENT AND PLAN: History is unusual. On further questioning emerges she is only receiving Herceptin - last dose 3 weeks ago - which makes it unlikely that this is the cause of her current reported GI symptoms. Noted to be requesting narcotic analgesia for 'pain all over', but confirms that only systemic metastatic site was sternum, which was radiated. She's equivocal about history of presence of intracranial mets. States now that she is not on any trial protocol. Says that she is now receiving her care at [facility], but gave me the name of her current oncologist Dr Butterfield, who in fact works at [employer] [facility] [place]. Very important to obtain accurate history - left message with Dr Butterfeild - awaiting call back - [phone]
[2018-07-12] MEDS: SODIUM CHLORIDE 1,000 ML IV SCH ×2 (00:10→19:03)
[2018-07-12] MEDS: morphine SULFATE 4 MG/ML VIAL IVPUSH PRN ×3 (01:04→18:19)
[2018-07-12] MEDS: HEPARIN NA (PORCINE) 5,000 UNITS/ML 1ML VIAL SQ SCH ×3 (06:33→21:35)
[2018-07-12] MEDS: oxyCODONE HCL 5 MG TABLET PO PRN ×3 (06:35→21:38)
[2018-07-12] MEDS: ACETAMINOPHEN 325 MG TABLET (FP) PO PRN ×3 (06:35→21:38)
[2018-07-12 08:13] LABS: ANION GAP 10 (8-16); BLOOD UREA NITROGEN 8 mg/dL (7-18); CALCIUM 8.1 mg/dL (8.5-10.1); CHLORIDE 112 mmol/L (98-107); CO2 21 mmol/L (21-32); CREATININE 0.5 mg/dL (0.55-1.02); GLUCOSE,RANDOM 86 mg/dL (74-106); MAGNESIUM 2.1 mg/dL (1.8-2.4); POTASSIUM 3.9 mmol/L (3.5-5.1); SODIUM 143 mmol/L (136-145)
[2018-07-12] MEDS ORDERED: PT OWN MED DRAWER 7, Y5N ONE ×2 (08:50→21:32)
[2018-07-12] MEDS: SERTRALINE HCL 50 MG TABLET (FP) PO SCH (09:04)
[2018-07-12] MEDS: PYRIDOXINE HCL (B-6) 50 MG TABLET (FP) PO SCH ×2 (09:04→21:35)
[2018-07-12] MEDS: ONDANSETRON 4 MG/2 ML VIAL IVPUSH PRN ×2 (09:04→18:23)
[2018-07-12] MEDS: DEXAMETHASONE 4 MG TABLET (FP) PO SCH ×2 (09:04→21:35)
--- NOTE | 2018-07-12 09:55 | PN ---
Progress Note, Physician Chief Complaint: UNSTEADY GAIT NO FALLS NAUSEA IMPROVED - Current Medication List Current Medications: Active Medications Acetaminophen (Tylenol -) 325 mg PO Q6H PRN PRN Reason: TESS Last Admin: 07/12/18 06:35 Dose: 325 mg Bupropion HCl (Wellbutrin Xl -) 300 mg PO DAILY [facility] Last Admin: 07/12/18 09:04 Dose: 300 mg Clonazepam (Klonopin -) 1 mg PO [facility] Last Admin: 07/11/18 21:03 Dose: 1 mg Dexamethasone (Decadron -) 4 mg PO BID [facility] Last Admin: 07/12/18 09:04 Dose: 4 mg Docusate Sodium (Colace -) 200 mg PO [facility] Last Admin: 07/11/18 21:02 Dose: 200 mg Heparin Sodium (Porcine) (Heparin -) 5,000 unit SQ TID [facility] Last Admin: 07/12/18 06:33 Dose: 5,000 unit Sodium Chloride (Normal Saline -) 1,000 mls @ 80 mls/hr IV ASDIR [facility] Last Admin: 07/12/18 00:10 Dose: 80 mls/hr Metoclopramide HCl (Reglan Injection -) 10 mg IVPUSH Q6H PRN PRN Reason: NAUSEA AND/OR VOMITING Last Admin: 07/11/18 11:53 Dose: 10 mg Morphine Sulfate (Morphine Sulfate) 4 mg IVPUSH Q6H PRN PRN Reason: PAIN LEVEL 7 - 10 Last Admin: 07/12/18 09:04 Dose: 4 mg Olanzapine (Zyprexa -) 5 mg PO [facility] Last Admin: 07/11/18 21:02 Dose: 5 mg Ondansetron HCl (Zofran Injection) 4 mg IVPUSH Q6H PRN PRN Reason: NAUSEA AND/OR VOMITING Last Admin: 07/12/18 09:04 Dose: 4 mg Oxycodone HCl (Roxicodone -) 5 mg PO Q6H PRN PRN Reason: PAIN LEVEL 6-10 Last Admin: 07/12/18 06:35 Dose: 5 mg Pyridoxine HCl (Vitamin B6 -) 100 mg PO BID [facility] Last Admin: 07/12/18 09:04 Dose: 100 mg Senna (Senna -) 2 tab PO [facility] Last Admin: 07/11/18 21:02 Dose: 2 tab Sertraline HCl (Zoloft -) 50 mg PO DAILY [facility]ASTA Last Admin: 07/12/18 09:04 Dose: 50 mg - Objective Vital Signs: Vital Signs Temperature 97.8 F 07/12/18 06:00 Pulse Rate 85 07/12/18 09:13 Respiratory Rate 18 07/12/18 09:13 Blood Pressure 132/73 07/12/18 09:13 O2 Sat by Pulse Oximetry (%) 95 07/12/18 09:11 Constitutional: Yes: Mild Distress Eyes: Yes: WNL HENT: Yes: WNL Neck: Yes: WNL Cardiovascular: Yes: WNL Respiratory: Yes: WNL Gastrointestinal: Yes: WNL Genitourinary: Yes: WNL Musculoskeletal: Yes: WNL Extremities: Yes: WNL Edema: No Peripheral Pulses WNL: Yes Integumentary: Yes: WNL Wound/Incision: Yes: Clean/Dry Neurological: Yes: Unsteady Gait ...Motor Strength: LLE, RLE Psychiatric: Yes: WNL Labs: CBC, BMP 07/11/18 06:30 07/12/18 06:59 Problem List - Problems (1) Intractable nausea and vomiting Code(s): R11.2 - NAUSEA WITH VOMITING, UNSPECIFIED Qualifiers: Vomiting type: unspecified Qualified Code(s): R11.2 - Nausea with vomiting , unspecified (2) Breast cancer Code(s): C50.919 - MALIGNANT NEOPLASM OF UNSP SITE OF UNSPECIFIED FEMALE BREAST (3) Metastatic breast cancer Code(s): C50.919 - MALIGNANT NEOPLASM OF UNSP SITE OF UNSPECIFIED FEMALE BREAST (4) Carcinoma of breast metastatic to bone Code(s): C50.919 - MALIGNANT NEOPLASM OF UNSP SITE OF UNSPECIFIED FEMALE BREAST ; C79.51 - SECONDARY MALIGNANT NEOPLASM OF BONE (5) 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 Code(s): C50.919 - MALIGNANT NEOPLASM OF UNSP SITE OF UNSPECIFIED FEMALE BREAST ; C79.31 - SECONDARY MALIGNANT NEOPLASM OF BRAIN (6) Unsteady gait Code(s): R26.81 - UNSTEADINESS ON FEET Assessment/Plan OOB TO CHAIR WITH ASSIST PT EVAL ADVANCE DIET SLOWLY STILL WITH NAUSEA AND VOMITING IVF ZOFRAN
--- NOTE | 2018-07-12 19:50 | PN ---
Progress Note (short form) - Note Progress Note: Patient seen and examined Diplopia , Ataxia On Herceptin therapy for breast ca Her-2 positive breast ca has highest incidence of SCHOOL ADMISSIONS REPRESENTATIVE involvement. In addition, patient previously treated with SRS to brain met . Symptoms suggest eith er cerebellar mets or carcinomtousmeningitis. Will proceed with MRI with contrast Last Vital Signs Temp Pulse Resp BP Pulse Ox 98 F 98 H 18 115/75 95 07/12/18 14:40 07/12/18 14:40 07/12/18 14:40 07/12/18 14:40 07/12/18 09:11 HEENT: [place], EOM Intact Oropharynx: No thrush, No mucositis Breasts: Without masses Cor: RSR, No murmurs, No gallops Lungs: Clear to P&A Abd: Soft, Normal bowel sounds, No organomegaly Ext:No significant edema Skin: No rashes, Integument intact F-N-OK H-S- ataxia No dysdiadoinesis motor LE intact Flexor- withdrawl Vibration intact CBC, BMP 07/11/18 06:30 07/12/18 06:59 Current Medications Generic Name Dose Route Start Last Admin Trade Name Freq PRN Reason Stop Dose Admin Acetaminophen 325 mg 07/11/18 01:24 07/12/18 14:03 Tylenol - PO 325 mg Q6H PRN Administration TESS Bupropion HCl 300 mg 07/11/18 10:00 07/12/18 09:04 Wellbutrin Xl - PO 300 mg DAILY YOKASTA Administration Clonazepam 1 mg 07/11/18 22:00 07/11/18 21:03 Klonopin - PO 1 mg HS YOKASTA Administration Dexamethasone 4 mg 07/11/18 10:00 07/12/18 09:04 Decadron - PO 4 mg BID YOKASTA Administration Docusate Sodium 200 mg 07/11/18 22:00 07/11/18 21:02 Colace - PO 200 mg HS YOKASTA Administration Heparin Sodium (Porcine) 5,000 unit 07/11/18 06:00 07/12/18 13:53 Heparin - SQ 5,000 unit TID YOKASTA Administration Sodium Chloride 1,000 mls @ 80 mls/hr 07/11/18 09:11 07/12/18 19:03 Normal Saline - IV 80 mls/hr ASDIR YOKASTA Administration Metoclopramide HCl 10 mg 07/11/18 01:51 07/11/18 11:53 Reglan Injection - IVPUSH 10 mg Q6H PRN Administration NAUSEA AND/OR VOMITING Morphine Sulfate 4 mg 07/11/18 09:00 07/12/18 18:19 Morphine Sulfate IVPUSH 4 mg Q6H PRN Administration PAIN LEVEL 7 - 10 Olanzapine 5 mg 07/11/18 22:00 07/11/18 21:02 Zyprexa - PO 5 mg HS YOKASTA Administration Ondansetron HCl 4 mg 07/11/18 01:52 07/12/18 18:23 Zofran Injection IVPUSH 4 mg Q6H PRN Administration NAUSEA AND/OR VOMITING Oxycodone HCl 5 mg 07/11/18 01:24 07/12/18 14:02 Roxicodone - PO 5 mg Q6H PRN Administration PAIN LEVEL 6-10 Pyridoxine HCl 100 mg 07/11/18 10:00 07/12/18 09:04 Vitamin B6 - PO 100 mg BID YOKASTA Administration Senna 2 tab 07/11/18 22:00 07/11/18 21:02 Senna - PO 2 tab HS YOKASTA Administration Sertraline HCl 50 mg 07/11/18 10:00 07/12/18 09:04 Zoloft - PO 50 mg DAILY YOKASTA Administration Impression: Metastatic breast ca SCHOOL ADMISSIONS REPRESENTATIVE /signs For MRI brain with stevie.
[2018-07-12] MEDS: DOCUSATE SODIUM 100 MG CAPSULE (FP) PO SCH (21:36)
[2018-07-12] MEDS: OLANZapine 5 MG TABLET PO SCH (21:36)
[2018-07-12] MEDS: clonazePAM 0.5 MG TABLET PO SCH (21:36)
[2018-07-12] MEDS: SENNOSIDES 8.6MG TABLET (FP) PO SCH (21:36)
[2018-07-13] MEDS: morphine SULFATE 4 MG/ML VIAL IVPUSH PRN ×3 (00:28→18:05)
[2018-07-13] MEDS: ACETAMINOPHEN 325 MG TABLET (FP) PO PRN ×3 (05:40→21:31)
[2018-07-13] MEDS: oxyCODONE HCL 5 MG TABLET PO PRN ×3 (05:41→21:31)
[2018-07-13] MEDS: ONDANSETRON 4 MG/2 ML VIAL IVPUSH PRN ×2 (05:42→18:06)
[2018-07-13] MEDS: HEPARIN NA (PORCINE) 5,000 UNITS/ML 1ML VIAL SQ SCH ×3 (05:42→21:29)
[2018-07-13] MEDS ORDERED: PT OWN MED DRAWER 7, Y5N ONE (09:05)
[2018-07-13] MEDS: DEXAMETHASONE 4 MG TABLET (FP) PO SCH ×2 (09:10→21:28)
[2018-07-13] MEDS: PYRIDOXINE HCL (B-6) 50 MG TABLET (FP) PO SCH ×2 (09:10→22:11)
[2018-07-13] MEDS: SERTRALINE HCL 50 MG TABLET (FP) PO SCH (09:10)
--- NOTE | 2018-07-13 11:56 | PN ---
Progress Note (short form) - Note Progress Note: call was placed to Dr Hodges office [phone]. Requested to send new and old brain mri results. Also requested to send Last note of a doctor. Patient had seen Dr hodges last time on june 19 2018. Last MRI brain was done on June 20 2018. I got the medical record authorization form signed from patient and faxed it to Dr Hodges office [phone].
--- NOTE | 2018-07-13 13:45 | PN ---
Progress Note, Physician Chief Complaint: IN BED ABLE TO TOLERATE LIQUIDS NO FEVERS - Current Medication List Current Medications: Active Medications Acetaminophen (Tylenol -) 325 mg PO Q6H PRN PRN Reason: TESS Last Admin: 07/13/18 05:40 Dose: 325 mg Bupropion HCl (Wellbutrin Xl -) 300 mg PO DAILY [facility] Last Admin: 07/13/18 09:10 Dose: 300 mg Clonazepam (Klonopin -) 1 mg PO [facility] Last Admin: 07/12/18 21:36 Dose: 1 mg Dexamethasone (Decadron -) 4 mg PO BID [facility] Last Admin: 07/13/18 09:10 Dose: 4 mg Docusate Sodium (Colace -) 200 mg PO [facility] Last Admin: 07/12/18 21:36 Dose: 200 mg Heparin Sodium (Porcine) (Heparin -) 5,000 unit SQ TID [facility] Last Admin: 07/13/18 05:42 Dose: 5,000 unit Sodium Chloride (Normal Saline -) 1,000 mls @ 80 mls/hr IV ASDIR [facility] Last Admin: 07/12/18 19:03 Dose: 80 mls/hr Metoclopramide HCl (Reglan Injection -) 10 mg IVPUSH Q6H PRN PRN Reason: NAUSEA AND/OR VOMITING Last Admin: 07/11/18 11:53 Dose: 10 mg Morphine Sulfate (Morphine Sulfate) 4 mg IVPUSH Q6H PRN PRN Reason: PAIN LEVEL 7 - 10 Last Admin: 07/13/18 09:10 Dose: 4 mg Olanzapine (Zyprexa -) 5 mg PO [facility] Last Admin: 07/12/18 21:36 Dose: 5 mg Ondansetron HCl (Zofran Injection) 4 mg IVPUSH Q6H PRN PRN Reason: NAUSEA AND/OR VOMITING Last Admin: 07/13/18 05:42 Dose: 4 mg Oxycodone HCl (Roxicodone -) 5 mg PO Q6H PRN PRN Reason: PAIN LEVEL 6-10 Last Admin: 07/13/18 05:41 Dose: 5 mg Pyridoxine HCl (Vitamin B6 -) 100 mg PO BID [facility] Last Admin: 07/13/18 09:10 Dose: 100 mg Senna (Senna -) 2 tab PO [facility] Last Admin: 07/12/18 21:36 Dose: 2 tab Sertraline HCl (Zoloft -) 50 mg PO DAILY [facility] Last Admin: 07/13/18 09:10 Dose: 50 mg - Objective Vital Signs: Vital Signs Temperature 97.6 F 07/13/18 06:00 Pulse Rate 76 07/13/18 06:00 Respiratory Rate 18 07/13/18 09:00 Blood Pressure 101/68 07/13/18 06:00 O2 Sat by Pulse Oximetry (%) 95 07/13/18 09:00 Constitutional: Yes: Mild Distress Eyes: Yes: WNL HENT: Yes: WNL Neck: Yes: WNL Cardiovascular: Yes: WNL Respiratory: Yes: WNL Gastrointestinal: Yes: WNL Genitourinary: Yes: WNL Musculoskeletal: Yes: Muscle Weakness Extremities: Yes: WNL Edema: No Peripheral Pulses WNL: Yes Integumentary: Yes: WNL Wound/Incision: Yes: Clean/Dry Neurological: Yes: Pre-Existing Deficit, Unsteady Gait, Weakness ...Motor Strength: LLE, RLE Psychiatric: Yes: WNL Labs: CBC, BMP 07/11/18 06:30 07/12/18 06:59 Problem List - Problems (1) Intractable nausea and vomiting Code(s): R11.2 - NAUSEA WITH VOMITING, UNSPECIFIED Qualifiers: Vomiting type: unspecified Qualified Code(s): R11.2 - Nausea with vomiting , unspecified (2) Breast cancer Code(s): C50.919 - MALIGNANT NEOPLASM OF UNSP SITE OF UNSPECIFIED FEMALE BREAST (3) Metastatic breast cancer Code(s): C50.919 - MALIGNANT NEOPLASM OF UNSP SITE OF UNSPECIFIED FEMALE BREAST (4) Carcinoma of breast metastatic to bone Code(s): C50.919 - MALIGNANT NEOPLASM OF UNSP SITE OF UNSPECIFIED FEMALE BREAST ; C79.51 - SECONDARY MALIGNANT NEOPLASM OF BONE (5) 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 Code(s): C50.919 - MALIGNANT NEOPLASM OF UNSP SITE OF UNSPECIFIED FEMALE BREAST ; C79.31 - SECONDARY MALIGNANT NEOPLASM OF BRAIN (6) Unsteady gait Code(s): R26.81 - UNSTEADINESS ON FEET Assessment/Plan DISCUSSED WITH DR BENTON FROM [facility] WILL KEEP PATIENT OVER THE WEEKEND HERE AND MONDAY EITHER TRANSFER TO [facility] OR OTHER SNF. PATIENT DOES NOT WANT TO GO BACK TO [facility] FOR REHAB. MRI REVIEWED FROM [facility] WITH CEREBELLAR METS FROM BREAST AND BONE ZOFRAN PRN STOP IVF FALL RISKS
[2018-07-13] MEDS: SODIUM CHLORIDE 1,000 ML IV SCH (21:04)
[2018-07-13] MEDS: OLANZapine 5 MG TABLET PO SCH (21:28)
[2018-07-13] MEDS: clonazePAM 0.5 MG TABLET PO SCH (21:28)
[2018-07-13] MEDS: SENNOSIDES 8.6MG TABLET (FP) PO SCH (21:28)
[2018-07-13] MEDS: DOCUSATE SODIUM 100 MG CAPSULE (FP) PO SCH (21:28)
[2018-07-14] MEDS: morphine SULFATE 4 MG/ML VIAL IVPUSH PRN ×3 (00:24→18:23)
[2018-07-14] MEDS: HEPARIN NA (PORCINE) 5,000 UNITS/ML 1ML VIAL SQ SCH ×3 (06:29→22:15)
[2018-07-14] MEDS: oxyCODONE HCL 5 MG TABLET PO PRN ×3 (06:32→21:18)
[2018-07-14] MEDS: ACETAMINOPHEN 325 MG TABLET (FP) PO PRN ×3 (06:32→21:17)
[2018-07-14 08:40] LABS: HEMATOCRIT 34.1 % (32.4-45.2); HEMOGLOBIN 11.6 GM/dL (10.7-15.3); MCH 30.9 pg (25.7-33.7); MEAN PLT VOLUME 7.8 fl (7.5-11.1); PLATELET COUNT 126 K/MM3 (134-434); RBC 3.75 M/mm3 (3.60-5.2); RDW 19.5 % (11.6-15.6); WHITE BLOOD COUNT 5.9 K/mm3 (4.0-10.0)
[2018-07-14 09:26] LABS: CHLORIDE 109 mmol/L (98-107); POTASSIUM 3.9 mmol/L (3.5-5.1); SODIUM 143 mmol/L (136-145)
[2018-07-14] MEDS: DEXAMETHASONE 4 MG TABLET (FP) PO SCH ×2 (09:33→21:19)
[2018-07-14 09:37] LABS: ALK PHOS 108 U/L (45-117); ANION GAP 11 (8-16); BILIRUBIN,TOTAL 0.3 mg/dL (0.2-1.0); BLOOD UREA NITROGEN 5 mg/dL (7-18); CALCIUM 8.4 mg/dL (8.5-10.1); CO2 23 mmol/L (21-32); CREATININE 0.4 mg/dL (0.55-1.02); GLUCOSE,RANDOM 94 mg/dL (74-106); PHOSPHOROUS 2.3 mg/dL (2.5-4.9); SGOT/AST 31 U/L (15-37); SGPT/ALT 47 U/L (12-78); TOT PROT 6.4 g/dl (6.4-8.2)
[2018-07-14] MEDS: PYRIDOXINE HCL (B-6) 50 MG TABLET (FP) PO SCH ×2 (09:37→21:15)
[2018-07-14] MEDS: SODIUM CHLORIDE 1,000 ML IV SCH (09:38)
[2018-07-14] MEDS: SERTRALINE HCL 50 MG TABLET (FP) PO SCH (09:38)
[2018-07-14] MEDS: ONDANSETRON 4 MG/2 ML VIAL IVPUSH PRN (11:56)
--- NOTE | 2018-07-14 14:37 | PN ---
Progress Note, Physician - Current Medication List Current Medications: Active Medications Acetaminophen (Tylenol -) 325 mg PO Q6H PRN PRN Reason: TSES Last Admin: 07/14/18 06:32 Dose: 325 mg Bupropion HCl (Wellbutrin Xl -) 300 mg PO DAILY [facility] Last Admin: 07/14/18 09:37 Dose: 300 mg Clonazepam (Klonopin -) 1 mg PO [facility] Last Admin: 07/13/18 21:28 Dose: 1 mg Dexamethasone (Decadron -) 4 mg PO BID [facility] Last Admin: 07/14/18 09:33 Dose: 4 mg Docusate Sodium (Colace -) 200 mg PO [facility] Last Admin: 07/13/18 21:28 Dose: 200 mg Heparin Sodium (Porcine) (Heparin -) 5,000 unit SQ TID [facility] Last Admin: 07/14/18 13:34 Dose: 5,000 unit Metoclopramide HCl (Reglan Injection -) 10 mg IVPUSH Q6H PRN PRN Reason: NAUSEA AND/OR VOMITING Last Admin: 07/11/18 11:53 Dose: 10 mg Morphine Sulfate (Morphine Sulfate) 4 mg IVPUSH Q6H PRN PRN Reason: PAIN LEVEL 7 - 10 Last Admin: 07/14/18 09:48 Dose: 4 mg Olanzapine (Zyprexa -) 5 mg PO [facility] Last Admin: 07/13/18 21:28 Dose: 5 mg Ondansetron HCl (Zofran Injection) 4 mg IVPUSH Q6H PRN PRN Reason: NAUSEA AND/OR VOMITING Last Admin: 07/14/18 11:56 Dose: 4 mg Oxycodone HCl (Roxicodone -) 5 mg PO Q6H PRN PRN Reason: PAIN LEVEL 6-10 Last Admin: 07/14/18 06:32 Dose: 5 mg Pyridoxine HCl (Vitamin B6 -) 100 mg PO BID [facility] Last Admin: 07/14/18 09:37 Dose: 100 mg Senna (Senna -) 2 tab PO [facility] Last Admin: 07/13/18 21:28 Dose: 2 tab Sertraline HCl (Zoloft -) 50 mg PO DAILY [facility] Last Admin: 07/14/18 09:38 Dose: 50 mg - Objective Vital Signs: Vital Signs Temperature 97.6 F 08/18/18 09:00 Pulse Rate 80 07/14/18 09:00 Respiratory Rate 18 07/14/18 09:00 Blood Pressure 127/82 07/14/18 09:00 O2 Sat by Pulse Oximetry (%) 99 07/14/18 12:24 Labs: CBC, BMP 07/14/18 07:20 07/14/18 07:20 Problem List - Problems (1) Intractable nausea and vomiting Assessment/Plan: : patient had 1 week hx of nonbloody and nonbilious vomiting. -AST 38, ALT 57, Urinalysis showed urobilinogen 4.0 -CT of abdomen and pelvis nad. -Ondansetron 4 mg IV q6h PRN -Dr. Bronson consult appreciated. Code(s): R11.2 - NAUSEA WITH VOMITING, UNSPECIFIED Qualifiers: Vomiting type: unspecified Qualified Code(s): R11.2 - Nausea with vomiting , unspecified (2) Metastatic breast cancer Assessment/Plan: #Breast cancer stage IV -Patient on Infusion Targeted therapy and Herceptin -Oncology consult appreciated. 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
--- NOTE | 2018-07-14 19:01 | PN ---
Progress Note (short form) - Note Progress Note: Patient seen in follow up. No new complaints. No significant events overnight. Nausea improved. Pain also improved. Inpatient Meds reviewed. Current Medications Generic Name Dose Route Start Last Admin Trade Name Freq PRN Reason Stop Dose Admin Acetaminophen 325 mg 07/11/18 01:24 07/14/18 15:03 Tylenol - PO 325 mg Q6H PRN Administration TESS Bupropion HCl 300 mg 07/11/18 10:00 07/14/18 09:37 Wellbutrin Xl - PO 300 mg DAILY [facility] Administration Clonazepam 1 mg 07/11/18 22:00 07/13/18 21:28 Klonopin - PO 1 mg HS [facility] Administration Dexamethasone 4 mg 07/11/18 10:00 07/14/18 09:33 Decadron - PO 4 mg BID [facility] Administration Docusate Sodium 200 mg 07/11/18 22:00 07/13/18 21:28 Colace - PO 200 mg HS [facility] Administration Heparin Sodium (Porcine) 5,000 unit 07/11/18 06:00 07/14/18 13:34 Heparin - SQ 5,000 unit TID [facility] Administration Metoclopramide HCl 10 mg 07/11/18 01:51 07/11/18 11:53 Reglan Injection - IVPUSH 10 mg Q6H PRN Administration NAUSEA AND/OR VOMITING Morphine Sulfate 4 mg 07/11/18 09:00 07/14/18 18:23 Morphine Sulfate IVPUSH 4 mg Q6H PRN Administration PAIN LEVEL 7 - 10 Olanzapine 5 mg 07/11/18 22:00 07/13/18 21:28 Zyprexa - PO 5 mg HS [facility] Administration Ondansetron HCl 4 mg 07/11/18 01:52 07/14/18 11:56 Zofran Injection IVPUSH 4 mg Q6H PRN Administration NAUSEA AND/OR VOMITING Oxycodone HCl 5 mg 07/11/18 01:24 07/14/18 15:03 Roxicodone - PO 5 mg Q6H PRN Administration PAIN LEVEL 6-10 Pyridoxine HCl 100 mg 07/11/18 10:00 07/14/18 09:37 Vitamin B6 - PO 100 mg BID [facility] Administration Senna 2 tab 07/11/18 22:00 07/13/18 21:28 Senna - PO 2 tab HS [facility] Administration Sertraline HCl 50 mg 07/11/18 10:00 07/14/18 09:38 Zoloft - PO 50 mg DAILY [facility] Administration On Examination: Last Vital Signs Temp Pulse Resp BP Pulse Ox 99.1 F 87 18 118/70 99 07/14/18 18:36 07/14/18 18:36 07/14/18 18:36 07/14/18 18:36 07/14/18 12:24 General: In no acute distress. Extremities: No pallor or icterus. No pedal edema. CVS: S1, S2, regular, no gallop or murmur. Chest: good air entry bilaterally, clear Abdomen: Non-distended, non-tender, no palpable organomegaly. Neuro: Alert, oriented, non-focal. Labs: CBC, BMP 07/14/18 07:20 07/14/18 07:20 Assessment. Metastatic breast cancer, with known cerebellar metastases, s/p stereotactic RTX , and recently on Avastin. Admitted with nausea, likely attributable to above - ?progression of intracranial disease (MRI pending). Appears to be doing better since started on steroids. Symptomatic management over weekend - will return to care of treating oncologists at [facility].
[2018-07-14] MEDS ORDERED: PT OWN MED DRAWER 7, Y5N ONE (21:12)
[2018-07-14] MEDS: DOCUSATE SODIUM 100 MG CAPSULE (FP) PO SCH (21:15)
[2018-07-14] MEDS: clonazePAM 0.5 MG TABLET PO SCH (21:16)
[2018-07-14] MEDS: SENNOSIDES 8.6MG TABLET (FP) PO SCH (21:17)
[2018-07-14] MEDS: OLANZapine 5 MG TABLET PO SCH (21:17)
[2018-07-15] MEDS: morphine SULFATE 4 MG/ML VIAL IVPUSH PRN (05:31)
[2018-07-15] MEDS: HEPARIN NA (PORCINE) 5,000 UNITS/ML 1ML VIAL SQ SCH ×3 (05:32→21:55)
[2018-07-15] MEDS: SERTRALINE HCL 50 MG TABLET (FP) PO SCH (09:41)
[2018-07-15] MEDS: DEXAMETHASONE 4 MG TABLET (FP) PO SCH ×2 (09:41→21:56)
[2018-07-15] MEDS: PYRIDOXINE HCL (B-6) 50 MG TABLET (FP) PO SCH ×2 (09:42→21:55)
[2018-07-15] MEDS: METOCLOPRAMIDE HCL INJECTION 10 MG/2 ML VIAL IVPUSH PRN (09:53)
[2018-07-15] MEDS: ACETAMINOPHEN 325 MG TABLET (FP) PO PRN ×3 (10:30→22:46)
[2018-07-15] MEDS: oxyCODONE HCL 5 MG TABLET PO PRN ×3 (10:31→22:45)
[2018-07-15] MEDS ORDERED: oxyCODONE HCL 5 MG TABLET PO PRN (13:15)
--- NOTE | 2018-07-15 13:20 | PN ---
Progress Note, Physician - Current Medication List Current Medications: Active Medications Acetaminophen (Tylenol -) 325 mg PO Q6H PRN PRN Reason: TESS Last Admin: 07/15/18 10:30 Dose: 325 mg Bupropion HCl (Wellbutrin Xl -) 300 mg PO DAILY [facility] Last Admin: 07/15/18 09:41 Dose: 300 mg Clonazepam (Klonopin -) 1 mg PO [facility] Last Admin: 07/14/18 21:16 Dose: 1 mg Dexamethasone (Decadron -) 4 mg PO BID [facility] Last Admin: 07/15/18 09:41 Dose: 4 mg Docusate Sodium (Colace -) 200 mg PO [facility] Last Admin: 07/14/18 21:15 Dose: 200 mg Duloxetine HCl (Cymbalta -) 60 mg PO DAILY [facility] Heparin Sodium (Porcine) (Heparin -) 5,000 unit SQ TID [facility] Last Admin: 07/15/18 05:32 Dose: 5,000 unit Olanzapine (Zyprexa -) 5 mg PO [facility] Last Admin: 07/14/18 21:17 Dose: 5 mg Ondansetron HCl (Zofran Injection) 4 mg IVPUSH Q6H PRN PRN Reason: NAUSEA AND/OR VOMITING Last Admin: 07/14/18 11:56 Dose: 4 mg Oxycodone HCl (Roxicodone -) 10 mg PO Q6H PRN PRN Reason: PAIN LEVEL 6-10 Pyridoxine HCl (Vitamin B6 -) 100 mg PO BID [facility] Last Admin: 07/15/18 09:42 Dose: 100 mg Senna (Senna -) 2 tab PO [facility] Last Admin: 07/14/18 21:17 Dose: 2 tab - Objective Vital Signs: Vital Signs Temperature 98.3 F 07/15/18 08:56 Pulse Rate 84 07/15/18 08:56 Respiratory Rate 18 07/15/18 08:56 Blood Pressure 126/77 07/15/18 08:56 O2 Sat by Pulse Oximetry (%) 97 07/15/18 12:00 Cardiovascular: Yes: S1, S2 Respiratory: Yes: Regular, CTA Bilaterally Gastrointestinal: Yes: Normal Bowel Sounds, Soft. No: Tenderness Labs: CBC, BMP 07/14/18 07:20 07/14/18 07:20 Problem List - Problems (1) Intractable nausea and vomiting Assessment/Plan: : patient had 1 week hx of nonbloody and nonbilious vomiting. -AST 38, ALT 57, Urinalysis showed urobilinogen 4.0 -CT of abdomen and pelvis nad. -Ondansetron 4 mg IV q6h PRN -Dr. Bronson consult appreciated. Code(s): R11.2 - NAUSEA WITH VOMITING, UNSPECIFIED Qualifiers: Vomiting type: unspecified Qualified Code(s): R11.2 - Nausea with vomiting , unspecified (2) Metastatic breast cancer Assessment/Plan: #Breast cancer stage IV -Patient on Infusion Targeted therapy and Herceptin -Oncology consult appreciated. -For transfer to [facility] meds Code(s): C50.919 - MALIGNANT NEOPLASM OF UNSP SITE OF UNSPECIFIED FEMALE BREAST (3) Breast cancer Code(s): C50.919 - MALIGNANT NEOPLASM OF UNSP SITE OF UNSPECIFIED FEMALE BREAST
[2018-07-15] MEDS: METOCLOPRAMIDE HCL 10 MG TABLET (FP) PO SCH ×2 (17:23→21:56)
[2018-07-15] MEDS ORDERED: PT OWN MED DRAWER 7, Y5N ONE (21:16)
[2018-07-15] MEDS: OLANZapine 5 MG TABLET PO SCH (21:55)
[2018-07-15] MEDS: DOCUSATE SODIUM 100 MG CAPSULE (FP) PO SCH (21:55)
[2018-07-15] MEDS: clonazePAM 0.5 MG TABLET PO SCH (21:56)
[2018-07-15] MEDS: SENNOSIDES 8.6MG TABLET (FP) PO SCH (21:56)
[2018-07-16] MEDS: HEPARIN NA (PORCINE) 5,000 UNITS/ML 1ML VIAL SQ SCH ×3 (05:23→21:26)
[2018-07-16] MEDS: oxyCODONE HCL 5 MG TABLET PO PRN ×3 (05:59→21:24)
[2018-07-16] MEDS: METOCLOPRAMIDE HCL 10 MG TABLET (FP) PO SCH ×5 (05:59→21:26)
[2018-07-16] MEDS: ACETAMINOPHEN 325 MG TABLET (FP) PO PRN ×3 (06:00→21:25)
[2018-07-16] MEDS ORDERED: PT OWN MED DRAWER 7, Y5N ONE ×3 (10:04→21:37)
[2018-07-16] MEDS: DEXAMETHASONE 4 MG TABLET (FP) PO SCH ×2 (10:05→21:26)
[2018-07-16] MEDS: PYRIDOXINE HCL (B-6) 50 MG TABLET (FP) PO SCH ×2 (10:06→21:38)
[2018-07-16] MEDS: DULoxetine HCL 30 MG CAPSULE.DR (FP) PO SCH (10:09)
--- NOTE | 2018-07-16 11:56 | PN ---
Progress Note, Physician Chief Complaint: Nausea/vomiting History of Present Illness: NAD, sitting in bed Has unsteady gait due to cerebellar mets Walked 100 ft with Physical therapy Lives with her son, is at increased fall risk - Current Medication List Current Medications: Active Medications Acetaminophen (Tylenol -) 325 mg PO Q6H PRN PRN Reason: PAIN LEVEL 6-10 Last Admin: 07/16/18 06:00 Dose: 325 mg Bupropion HCl (Wellbutrin Xl -) 300 mg PO DAILY [facility] Last Admin: 07/16/18 10:05 Dose: 300 mg Clonazepam (Klonopin -) 1 mg PO HS [facility] Last Admin: 07/15/18 21:56 Dose: 1 mg Dexamethasone (Decadron -) 4 mg PO BID [facility] Last Admin: 07/16/18 10:05 Dose: 4 mg Docusate Sodium (Colace -) 200 mg PO HS [facility] Last Admin: 07/15/18 21:55 Dose: 200 mg Duloxetine HCl (Cymbalta -) 60 mg PO DAILY [facility] Last Admin: 07/16/18 10:09 Dose: Not Given Heparin Sodium (Porcine) (Heparin -) 5,000 unit SQ TID [facility] Last Admin: 07/16/18 05:23 Dose: 5,000 unit Metoclopramide HCl (Reglan -) 10 mg PO ACHS [facility] Last Admin: 07/16/18 05:59 Dose: 10 mg Olanzapine (Zyprexa -) 5 mg PO HS [facility] Last Admin: 07/15/18 21:55 Dose: 5 mg Ondansetron HCl (Zofran Injection) 4 mg IVPUSH Q6H PRN PRN Reason: NAUSEA AND/OR VOMITING Last Admin: 07/14/18 11:56 Dose: 4 mg Oxycodone HCl (Roxicodone -) 10 mg PO Q6H PRN PRN Reason: PAIN LEVEL 6-10 Last Admin: 07/16/18 05:59 Dose: 10 mg Pyridoxine HCl (Vitamin B6 -) 100 mg PO BID [facility] Last Admin: 07/16/18 10:06 Dose: 100 mg Senna (Senna -) 2 tab PO HS [facility] Last Admin: 07/15/18 21:56 Dose: 2 tab - Objective Vital Signs: Vital Signs Temperature 97.4 F L 07/16/18 09:53 Pulse Rate 104 H 07/16/18 09:53 Respiratory Rate 07/16/18 09:53 Blood Pressure 114/74 07/16/18 09:53 O2 Sat by Pulse Oximetry (%) 94 L 07/15/18 20:00 Constitutional: Yes: Well Nourished, No Distress, Calm Cardiovascular: Yes: Regular Rate and Rhythm Respiratory: Yes: Regular Gastrointestinal: Yes: Normal Bowel Sounds, Soft Musculoskeletal: Yes: Muscle Weakness Neurological: Yes: Alert, Oriented Psychiatric: Yes: Alert, Oriented Labs: CBC, BMP 07/14/18 07:20 07/14/18 07:20 Problem List - Problems (1) 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 Assessment/Plan: -Seen by Oncology -Had recent MRI brain at [facility] -Would follow up with Oncology outpatient Code(s): C50.919 - MALIGNANT NEOPLASM OF UNSP SITE OF UNSPECIFIED FEMALE BREAST ; C79.31 - SECONDARY MALIGNANT NEOPLASM OF BRAIN (2) Intractable nausea and vomiting Assessment/Plan: -resolved -tolerating po intake Code(s): R11.2 - NAUSEA WITH VOMITING, UNSPECIFIED Qualifiers: Vomiting type: unspecified Qualified Code(s): R11.2 - Nausea with vomiting , unspecified (3) Unsteady gait Assessment/Plan: -SNF vs Home care services, lives in [place], would prefer a rehab closer to home. Code(s): R26.81 - UNSTEADINESS ON FEET Assessment/Plan see problem list
[2018-07-16 12:51] LABS: BASO % 0.4 % (0-2.0); EOS % 0.7 % (0-4.5); HEMATOCRIT 38.2 % (32.4-45.2); LYMPH % 12.3 % (8-40); MCH 30.7 pg (25.7-33.7); MEAN CELL VOLUME 90.3 fl (80-96); MEAN PLT VOLUME 7.9 fl (7.5-11.1); MONO % 6.1 % (3.8-10.2); NEUT % 80.5 % (42.8-82.8); PLATELET COUNT 182 K/MM3 (134-434); RBC 4.23 M/mm3 (3.60-5.2); RDW 19.2 % (11.6-15.6); WHITE BLOOD COUNT 9.8 K/mm3 (4.0-10.0)
[2018-07-16 13:22] LABS: ALBUMIN 3.5 g/dl (3.4-5.0); ANION GAP 11 (8-16); BLOOD UREA NITROGEN 13 mg/dL (7-18); CALCIUM 9.4 mg/dL (8.5-10.1); CHLORIDE 107 mmol/L (98-107); CO2 23 mmol/L (21-32); CREATININE 0.6 mg/dL (0.55-1.02); GLUCOSE,RANDOM 77 mg/dL (74-106); POTASSIUM 4.2 mmol/L (3.5-5.1); SGOT/AST 30 U/L (15-37); SODIUM 141 mmol/L (136-145)
[2018-07-16 13:30] LABS: ALK PHOS 127 U/L (45-117); BILIRUBIN,TOTAL 0.3 mg/dL (0.2-1.0); SGPT/ALT 46 U/L (12-78); TOT PROT 7.5 g/dl (6.4-8.2)
--- NOTE | 2018-07-16 14:03 | PN ---
Progress Note (short form) - Note Progress Note: Case discuss with oncologist Dr Salas in [facility]. They are aware that patient has diplopia. Patient has seen Dr smiley for same issue and MRI was done. Discussed if patient can be transferred to [facility] for further management. But as per Dr. Salas all symptoms are chronic. Patent also have scheduled appointment with Dr Salas on 07/09/18. Dr. Salas suggested as patient is feeling better and her nausea vomiting has resolved. Patient can be discharge to rehab/snf on dexamethasone and she can follow up with them on 07/09/18. Discussed with patient. Patient doesn't want to go back to [facility]. But she agreed for other rehab/ SNF Discussed with rn social services.
[2018-07-16 14:55] LABS: ANISOCYTOSIS 1+; MACROCYTOSIS 0; PLATELET ESTIMATE NORMAL
--- NOTE | 2018-07-16 17:27 | PN ---
Teaching Attending Note Name of Resident: Jordy Olivera ATTENDING PHYSICIAN STATEMENT I saw and evaluated the patient. I reviewed the resident's note and discussed the case with the resident. I agree with the resident's findings and plan as documented. SUBJECTIVE:Patient seen and examined Dr. Olivera's note reviewed . 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 Needs SRS to cerebellar met. This of course does not explain diplopia. It raises concern for either additional mets or carcinomatous meningitis. In any event, patient has improved on decadron. This should be maintained Needs opthalmology follow up . Can be done with [facility]. Patient lives in [place] - prefers SNF closer to home. Additional Social Sevice concern- patient is estranged / from who lives in [place]- She has a 13 year old son. She is afraid of losing him to foster care. Last Vital Signs Temp Pulse Resp BP Pulse Ox 97.7 F 102 H 18 129/82 97 07/16/18 16:27 07/16/18 16:27 07/16/18 16:27 07/16/18 16:27 07/16/18 12:00 HEENT: [place], EOM Intact diplopia Oropharynx: No thrush, No mucositis Cor: RSR, No murmurs, No gallops Lungs: Clear to P&A Abd: Soft, Normal bowel sounds, No organomegaly Ext:No significant edema Skin: No rashes, Integument intact CBC, BMP 07/16/18 12:10 07/16/18 12:10 Current Medications Generic Name Dose Route Start Last Admin Trade Name Freq PRN Reason Stop Dose Admin Acetaminophen 325 mg 07/15/18 15:56 07/16/18 14:04 Tylenol - PO 325 mg Q6H PRN Administration PAIN LEVEL 6-10 Bupropion HCl 300 mg 07/11/18 10:00 07/16/18 10:05 Wellbutrin Xl - PO 300 mg DAILY [facility] Administration Clonazepam 1 mg 07/11/18 22:00 07/15/18 21:56 Klonopin - PO 1 mg HS [facility] Administration Dexamethasone 4 mg 07/11/18 10:00 07/16/18 10:05 Decadron - PO 4 mg BID [facility] Administration Docusate Sodium 200 mg 07/11/18 22:00 08/19/18 21:55 Colace - PO 200 mg HS [facility] Administration Duloxetine HCl 60 mg 07/16/18 10:00 07/16/18 10:09 Cymbalta - PO Not Given DAILY [facility] Heparin Sodium (Porcine) 5,000 unit 07/11/18 06:00 07/16/18 14:05 Heparin - SQ 5,000 unit TID [facility] Administration Metoclopramide HCl 10 mg 07/15/18 16:30 07/16/18 17:18 Reglan - PO Not Given ACHS [facility] Olanzapine 5 mg 07/11/18 22:00 07/15/18 21:55 Zyprexa - PO 5 mg HS [facility] Administration Ondansetron HCl 4 mg 07/11/18 01:52 07/14/18 11:56 Zofran Injection IVPUSH 4 mg Q6H PRN Administration NAUSEA AND/OR VOMITING Oxycodone HCl 10 mg 07/15/18 15:56 07/16/18 14:02 Roxicodone - PO 10 mg Q6H PRN Administration PAIN LEVEL 6-10 Pyridoxine HCl 100 mg 07/11/18 10:00 07/16/18 10:06 Vitamin B6 - PO 100 mg BID [facility] Administration Senna 2 tab 07/11/18 22:00 07/15/18 21:56 Senna - PO 2 tab HS [facility] Administration Zolpidem Tartrate 10 mg 07/16/18 22:00 Ambien - PO HS PRN INSOMNIA OBJECTIVE:Metastatic breast ca [employer] mets Diplopia For follow up at [facility]. ASSESSMENT AND PLAN:
[2018-07-16] MEDS: ZOLPIDEM TARTRATE 5 MG TABLET PO PRN (21:25)
[2018-07-16] MEDS: clonazePAM 0.5 MG TABLET PO SCH (21:25)
[2018-07-16] MEDS: SENNOSIDES 8.6MG TABLET (FP) PO SCH (21:25)
[2018-07-16] MEDS: DOCUSATE SODIUM 100 MG CAPSULE (FP) PO SCH (21:25)
[2018-07-16] MEDS: OLANZapine 5 MG TABLET PO SCH (21:26)
[2018-07-17] MEDS: ZOLPIDEM TARTRATE 5 MG TABLET PO PRN ×2 (00:49→22:05)
[2018-07-17] MEDS: HEPARIN NA (PORCINE) 5,000 UNITS/ML 1ML VIAL SQ SCH ×3 (06:14→22:04)
[2018-07-17] MEDS: METOCLOPRAMIDE HCL 10 MG TABLET (FP) PO SCH ×4 (06:15→22:04)
[2018-07-17] MEDS: oxyCODONE HCL 5 MG TABLET PO PRN ×2 (06:20→12:37)
[2018-07-17] MEDS: ACETAMINOPHEN 325 MG TABLET (FP) PO PRN ×2 (06:20→12:38)
[2018-07-17] MEDS ORDERED: PT OWN MED DRAWER 7, Y5N ONE ×2 (10:17→12:34)
[2018-07-17] MEDS: DEXAMETHASONE 4 MG TABLET (FP) PO SCH ×3 (10:49→22:04)
[2018-07-17] MEDS: DULoxetine HCL 30 MG CAPSULE.DR (FP) PO SCH (10:49)
[2018-07-17] MEDS: PYRIDOXINE HCL (B-6) 50 MG TABLET (FP) PO SCH ×3 (10:49→22:04)
--- NOTE | 2018-07-17 11:53 | PN ---
Progress Note, Physician Chief Complaint: Nausea/vomiting History of Present Illness: NAD, sitting in bed Has unsteady gait due to cerebellar mets Walked 100 ft with Physical therapy ataxic, unsteady gait Lives with her son, is at increased fall risk Has list of symptom that are chronic since the metastasis of breast CA, including dizziness, blurry vision, nausea, vomiting, unsteady gait Now complaining of diarrhea x 2 this AM and supra-pubic abd pain UC was negative 4 days ago Wants us to communicate with Dr Gray-Neurosurgery at [place] for transfer surgical intervention he had mentioned to the patient? Dr Gray paged. - Current Medication List Current Medications: Active Medications Acetaminophen (Tylenol -) 325 mg PO Q6H PRN PRN Reason: PAIN LEVEL 6-10 Last Admin: 07/17/18 06:20 Dose: 325 mg Bupropion HCl (Wellbutrin Xl -) 300 mg PO DAILY [facility] Last Admin: 07/17/18 10:50 Dose: Not Given Clonazepam (Klonopin -) 1 mg PO HS [facility] Last Admin: 07/16/18 21:25 Dose: 1 mg Dexamethasone (Decadron -) 4 mg PO BID [facility] Last Admin: 07/17/18 10:49 Dose: Not Given Docusate Sodium (Colace -) 200 mg PO HS [facility] Last Admin: 07/16/18 21:25 Dose: 200 mg Duloxetine HCl (Cymbalta -) 60 mg PO DAILY [facility] Last Admin: 07/17/18 10:49 Dose: Not Given Heparin Sodium (Porcine) (Heparin -) 5,000 unit SQ TID [facility] Last Admin: 07/17/18 06:14 Dose: 5,000 unit Metoclopramide HCl (Reglan -) 10 mg PO ACHS [facility] Last Admin: 07/17/18 10:51 Dose: 10 mg Olanzapine (Zyprexa -) 5 mg PO HS [facility] Last Admin: 07/16/18 21:26 Dose: 5 mg Ondansetron HCl (Zofran Injection) 4 mg IVPUSH Q6H PRN PRN Reason: NAUSEA AND/OR VOMITING Last Admin: 07/14/18 11:56 Dose: 4 mg Oxycodone HCl (Roxicodone -) 10 mg PO Q6H PRN PRN Reason: PAIN LEVEL 6-10 Last Admin: 07/17/18 06:20 Dose: 10 mg Pyridoxine HCl (Vitamin B6 -) 100 mg PO BID [facility] Last Admin: 07/17/18 10:49 Dose: Not Given Senna (Senna -) 2 tab PO HS [facility] Last Admin: 07/16/18 21:25 Dose: 2 tab Zolpidem Tartrate (Ambien -) 10 mg PO HS PRN PRN Reason: INSOMNIA Last Admin: 07/17/18 00:49 Dose: 5 mg - Objective Vital Signs: Vital Signs Temperature 98 F 07/17/18 09:06 Pulse Rate 102 H 07/17/18 09:06 Respiratory Rate 20 07/17/18 09:06 Blood Pressure 98/56 07/17/18 09:06 O2 Sat by Pulse Oximetry (%) 96 07/17/18 04:00 Constitutional: Yes: Well Nourished, No Distress, Calm Cardiovascular: Yes: Regular Rate and Rhythm Respiratory: Yes: Regular Gastrointestinal: Yes: Normal Bowel Sounds, Soft Musculoskeletal: Yes: Muscle Weakness Edema: No Peripheral Pulses WNL: Yes Neurological: Yes: Alert, Oriented Psychiatric: Yes: Alert, Oriented Labs: CBC, BMP 07/16/18 12:10 07/16/18 12:10 Problem List - Problems (1) 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 Assessment/Plan: -Seen by Oncology -Had recent MRI brain at [facility] -Would follow up with Oncology outpatient -Spoke to [facility] with Dr Gray at [facility], who discussed the case with Dr Gray, communicated with me that no surgical intervention is recommended at this time for metastatic disease Code(s): C50.919 - MALIGNANT NEOPLASM OF UNSP SITE OF UNSPECIFIED FEMALE BREAST ; C79.31 - SECONDARY MALIGNANT NEOPLASM OF BRAIN (2) Intractable nausea and vomiting Assessment/Plan: -resolved -tolerating po intake Code(s): R11.2 - NAUSEA WITH VOMITING, UNSPECIFIED Qualifiers: Vomiting type: unspecified Qualified Code(s): R11.2 - Nausea with vomiting , unspecified (3) Unsteady gait Assessment/Plan: -SNF vs Home care services, lives in [place], would prefer a rehab closer to home. Code(s): R26.81 - UNSTEADINESS ON FEET (4) Diarrhea Assessment/Plan: -stool for cdiff, culture Code(s): R19.7 - DIARRHEA, UNSPECIFIED (5) Abdominal pain Assessment/Plan: abdominal ultrasound Code(s): R10.9 - UNSPECIFIED ABDOMINAL PAIN Assessment/Plan see problem list
[2018-07-17] MEDS: clonazePAM 0.5 MG TABLET PO SCH (22:03)
[2018-07-17] MEDS: OLANZapine 5 MG TABLET PO SCH (22:04)
[2018-07-17] MEDS: SENNOSIDES 8.6MG TABLET (FP) PO SCH (22:14)
[2018-07-17] MEDS: DOCUSATE SODIUM 100 MG CAPSULE (FP) PO SCH (22:14)
[2018-07-18] MEDS: oxyCODONE HCL 5 MG TABLET PO PRN ×2 (04:43→11:31)
[2018-07-18] MEDS: METOCLOPRAMIDE HCL 10 MG TABLET (FP) PO SCH ×3 (06:04→16:40)
[2018-07-18] MEDS: HEPARIN NA (PORCINE) 5,000 UNITS/ML 1ML VIAL SQ SCH ×2 (06:04→13:30)
[2018-07-18 09:01] LABS: BASO % 0.2 % (0-2.0); EOS % 0.2 % (0-4.5); HEMATOCRIT 39.3 % (32.4-45.2); HEMOGLOBIN 13.1 GM/dL (10.7-15.3); LYMPH % 14.4 % (8-40); MCH 30.2 pg (25.7-33.7); MCHC 33.3 g/dl (32.0-36.0); MEAN CELL VOLUME 90.9 fl (80-96); MEAN PLT VOLUME 8.1 fl (7.5-11.1); MONO % 4.4 % (3.8-10.2); NEUT % 80.8 % (42.8-82.8); PLATELET COUNT 181 K/MM3 (134-434); RBC 4.32 M/mm3 (3.60-5.2); RDW 19.3 % (11.6-15.6); WHITE BLOOD COUNT 9.3 K/mm3 (4.0-10.0)
[2018-07-18 09:13] LABS: ALBUMIN 3.3 g/dl (3.4-5.0); ANION GAP 10 MMOL/L (8-16); BLOOD UREA NITROGEN 13 mg/dL (7-18); CALCIUM 9.5 mg/dL (8.5-10.1); CHLORIDE 103 mmol/L (98-107); CO2 28 mmol/L (21-32); CREATININE 0.6 mg/dL (0.55-1.02); GLUCOSE,RANDOM 77 mg/dL (74-106); POTASSIUM 4.8 mmol/L (3.5-5.1); SGOT/AST 27 U/L (15-37); SGPT/ALT 47 U/L (12-78); SODIUM 141 mmol/L (136-145)
[2018-07-18 09:14] LABS: ALK PHOS 117 U/L (45-117); BILIRUBIN,TOTAL 0.4 mg/dL (0.2-1.0); TOT PROT 7.4 g/dl (6.4-8.2)
[2018-07-18] MEDS ORDERED: PT OWN MED DRAWER 7, Y5N ONE (09:56)
[2018-07-18] MEDS: PYRIDOXINE HCL (B-6) 50 MG TABLET (FP) PO SCH (10:44)
[2018-07-18] MEDS: DULoxetine HCL 30 MG CAPSULE.DR (FP) PO SCH ×2 (10:44→10:50)
[2018-07-18] MEDS: DEXAMETHASONE 4 MG TABLET (FP) PO SCH (10:44)
--- NOTE | 2018-07-18 10:48 | PN ---
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 Dr Gray pagechanning. - Current Medication List Current Medications: Active Medications Acetaminophen (Tylenol -) 325 mg PO Q6H PRN PRN Reason: PAIN LEVEL 6-10 Last Admin: 07/17/18 12:38 Dose: 325 mg Bupropion HCl (Wellbutrin Xl -) 300 mg PO DAILY [facility] Last Admin: 07/17/18 12:31 Dose: 300 mg Clonazepam (Klonopin -) 1 mg PO HS [facility] Last Admin: 07/17/18 22:03 Dose: 1 mg Dexamethasone (Decadron -) 4 mg PO BID [facility] Last Admin: 07/17/18 22:04 Dose: 4 mg Docusate Sodium (Colace -) 200 mg PO HS [facility] Last Admin: 07/17/18 22:14 Dose: Not Given Duloxetine HCl (Cymbalta -) 60 mg PO DAILY [facility] Last Admin: 07/17/18 10:49 Dose: Not Given Heparin Sodium (Porcine) (Heparin -) 5,000 unit SQ TID [facility] Last Admin: 07/18/18 06:04 Dose: 5,000 unit Metoclopramide HCl (Reglan -) 10 mg PO ACHS [facility] Last Admin: 07/18/18 06:04 Dose: 10 mg Olanzapine (Zyprexa -) 5 mg PO HS [facility] Last Admin: 07/17/18 22:04 Dose: 5 mg Ondansetron HCl (Zofran Injection) 4 mg IVPUSH Q6H PRN PRN Reason: NAUSEA AND/OR VOMITING Last Admin: 07/14/18 11:56 Dose: 4 mg Oxycodone HCl (Roxicodone -) 10 mg PO Q6H PRN PRN Reason: PAIN LEVEL 6-10 Last Admin: 07/18/18 04:43 Dose: 10 mg Pyridoxine HCl (Vitamin B6 -) 100 mg PO BID [facility] Last Admin: 07/17/18 22:04 Dose: 100 mg Senna (Senna -) 2 tab PO HS [facility] Last Admin: 07/17/18 22:14 Dose: Not Given Zolpidem Tartrate (Ambien -) 10 mg PO HS PRN PRN Reason: INSOMNIA Last Admin: 07/17/18 22:05 Dose: 5 mg - Objective Vital Signs: Vital Signs Temperature 98.0 F 07/18/18 06:00 Pulse Rate 87 07/18/18 06:00 Respiratory Rate 20 07/18/18 06:00 Blood Pressure 100/65 07/18/18 06:00 O2 Sat by Pulse Oximetry (%) 95 07/18/18 04:00 Labs: CBC, BMP 07/18/18 07:29 07/18/18 07:29 Problem List - Problems (1) 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
[2018-07-18 10:52] LABS: ANISOCYTOSIS 1+; MACROCYTOSIS 1+; PLATELET ESTIMATE ADEQUATE
[2018-07-18] MEDS: ACETAMINOPHEN 325 MG TABLET (FP) PO PRN (11:32)
[2018-07-18] MEDS ORDERED: SERTRALINE HCL 50 MG TABLET (FP) PO SCH (14:45)
[2018-07-18 18:45] VITALS: BP 132/81; PULSE 88; TEMP 97
== END 2018-07-18 21:33 | DRG 41 ==
LOC: JER 16:41 → INTOOBSV 07-11 00:05 → UNDOADMOB 07-11 00:05 → JERBED 07-11 00:05 → J5S 07-11 02:41 → JERBED 07-11 02:41 → J5S 07-11 02:41 → OBSVTOIN 07-18 11:07
PROVIDERS: ADMIT Internal Medicine; ATTEND Family Medicine
DX: C79.31 Secondary malignant neoplasm of brain (principal); R11.2 Nausea with vomiting, unspecified; Z87.891 Personal history of nicotine dependence; R27.0 Ataxia, unspecified; R26.81 Unsteadiness on feet; C50.919 Malignant neoplasm of unspecified site of unspecified female breast; C79.51 Secondary malignant neoplasm of bone
CPT/HCPCS: 36415; 70450-TC; 71045-TC-FY; 74176-TC; 76700-TC; 76775-TC; 76856-TC; 80048; 80053; 81003; 83690; 83735; 84100; 85025; 85027; 87086; 93005; 93010; 97116-GP; 97162-GP; 99283-25; G0378; J1644; J7030